=== PATIENT | female | born 1960 | race Caucasian/White ===

== ENCOUNTER 2016-10-26 06:12 | Emergency (ER) | payer MEDICAID, OTHER ==
[2016-10-26] MEDS ORDERED: ASPIRIN 81 MG TABLET, CHEWABLE PO ONE (07:41)
[2016-10-26] MEDS ORDERED: NITROGLYCERIN 2% OINTMENT 1 GM PACKET TP ONE (08:15)
[2016-10-26 08:17] LABS: HEMATOCRIT 49.8 % (36.0-47.0); HEMOGLOBIN 16.7 g/dL (12.0-15.5); HGB HCT DIFFERENCE 0.3; MEAN CORPUSCULAR HEMOGLOBIN 31.8 pg (27.0-33.4); MEAN CORPUSCULAR HGB CONC 33.4 g/dL (32.0-36.0); MEAN CORPUSCULAR VOLUME 95 fl (80-97); RED BLOOD COUNT 5.24 10^6/uL (3.72-5.28); RED CELL DISTRIBUTION WIDTH 14.4 % (11.5-14.0)
[2016-10-26 08:30] LABS: ALANINE AMINOTRANSFERASE 39 U/L (9-52); ALBUMIN 4.9 g/dL (3.5-5.0); ALKALINE PHOSPHATASE 51 U/L (38-126); ANION GAP 10 (5-19); ASPARTATE AMINO TRANSFERASE 40 U/L (14-36); BILIRUBIN,TOTAL 0.9 mg/dL (0.2-1.3); BLOOD UREA NITROGEN 15 mg/dL (7-20); CALCIUM 10.4 mg/dL (8.4-10.2); CARBON DIOXIDE 28 mmol/L (22-30); CHLORIDE 107 mmol/L (98-107); CREATINE KINASE 156 U/L (30-135); GLUCOSE 119 mg/dL (75-110); POTASSIUM 4.5 mmol/L (3.6-5.0); SODIUM 145.4 mmol/L (137-145); TOTAL PROTEIN 7.7 g/dL (6.3-8.2)
[2016-10-26 08:35] LABS: BAND NEUTROPHILS % (MANUAL) 1 % (3-5); BASOPHILS % (MANUAL) 0 % (0-2); EOSINOPHILS % (MANUAL) 0 % (0-6); LYMPHOCYTES % (MANUAL) 13 % (13-45); TOTAL CELLS COUNTED 100
[2016-10-26 08:36] LABS: RBC MORPHOLOGY COMMENT NORMO-CYTIC/CHROMIC
[2016-10-26 08:42] LABS: CREATINE KINASE MB 6.01 ng/mL (<4.55)
[2016-10-26 08:48] LABS: TROPONIN I 1.27 ng/mL
[2016-10-26 09:03] LABS: PROTHROMBIN TIME 12.8 SEC (11.4-15.4)
[2016-10-26 09:04] LABS: PARTIAL THROMBOPLASTIN TIME 32.8 SEC (23.5-35.8)
[2016-10-26] MEDS ORDERED: NORMAL SALINE 1000 ML 1,000 ML IV ONE (09:51)
[2016-10-26 09:54] LABS: APPEARANCE,URINE SLIGHTLY-CLOUDY; BILIRUBIN,URINE NEGATIVE (NEGATIVE); GLUCOSE, URINE NEGATIVE (NEGATIVE); KETONES,URINE 20 mg/dL (NEGATIVE); LEUKOCYTE ESTERASE,URINE TRACE (NEGATIVE); NITRITE,URINE NEGATIVE (NEGATIVE); PROTEIN,URINE 100 mg/dL (NEGATIVE); URINE SPECIFIC GRAVITY 1.019; UROBILINOGEN,URINE NEGATIVE mg/dL (<2.0)
[2016-10-26 09:55] LABS: URINE BARBITURATES SCREEN NEGATIVE; URINE METHADONE SCREEN NEGATIVE; URINE OPIATES LOW NEGATIVE; URINE PHENCYCLIDINE SCREEN NEGATIVE
[2016-10-26] MEDS ORDERED: ENOXAPARIN SODIUM INJ 60 MG/0.6 ML DISP.SYRIN SUBCUT SCH (10:00)
--- NOTE | 2016-10-26 10:16 | ER Document Report ---
ED Cardiac <AZIZA MYERS - Last Filed: 10/26/16 10:56> - General Mode of Arrival: Ambulatory Information source: Patient TRAVEL OUTSIDE OF THE U.S. IN LAST 30 DAYS: No - HPI Patient complains to provider of: Chest tightness, Shortness of breath Was the onset of pain: Gradual Is the pain a: New problem Chest pain location: Substernal Quality of pain: Pressure, Tightness Chest pain radiation location: None Severity now: Mild Severity at worst: Moderate Pain level currently: 2 Chest pain precipitating factors: At Rest Cardiac risk factors: Hypertension, Smoker Positive cardiac history: No Associated symptoms: Diaphoresis, Nausea/vomiting, Shortness of breath Similar symptoms previously: No Recently seen / treated by doctor: No <LUNA GREEN - Last Filed: 10/26/16 19:03> - General Chief Complaint: Breathing Difficulty Stated Complaint: VOMITING,BREATHING DIFFICULTY Notes: 55 y/o F presents to ED c/o intermittently persistent cough and sob since yesterday. Reports had associated episode of "feeling sweaty" while at rest and n/v yesterday. Also c/o chest pressure, states does not feel pain but feels like elephant sitting on chest. States feels like last time she had pneumonia. Denies fever or hemoptysis. (LUNA GREEN) - Related Data Allergies/Adverse Reactions: codeine [Codeine] Allergy (Verified 10/26/16 08:46) rash Home Medications: Current Home Medications No Home Medications 10/26/16 [History] Past Medical History - General Information source: Patient - Social History Smoking Status: Current Every Day Smoker Frequency of alcohol use: None Drug Abuse: None Lives with: Family Family History: Reviewed & Not Pertinent Patient has suicidal ideation: No Patient has homicidal ideation: No - Past Medical History Cardiac Medical History: Reports: Hx Hypertension - no current meds Denies: Hx Coronary Artery Disease, Hx Heart Attack Pulmonary Medical History: Reports: Hx Bronchitis, Hx COPD Denies: Hx Asthma, Hx Pneumonia, Hx Tuberculosis Neurological Medical History: Denies: Hx Cerebrovascular Accident, Hx Seizures Renal/ Medical History: Denies: Hx Peritoneal Dialysis GI Medical History: Reports: Hx Irritable Bowel. Denies: Hx Hepatitis, Hx Hiatal Hernia, Hx Ulcer Musculoskeltal Medical History: Denies Hx Arthritis Infectious Medical History: Denies: Hx Hepatitis Past Surgical History: Reports: Hx Tubal Ligation. Denies: Hx Hysterectomy, Hx Mastectomy, Hx Open Heart Surgery, Hx Pacemaker - Immunizations Hx Diphtheria, Pertussis, Tetanus Vaccination: Yes - 2006 <LUNA GREEN - Last Filed: 10/26/16 19:03> Review of Systems - Review of Systems Constitutional: No symptoms reported EENT: No symptoms reported Cardiovascular: See HPI Respiratory: See HPI Gastrointestinal: No symptoms reported Genitourinary: No symptoms reported Female Genitourinary: No symptoms reported Musculoskeletal: No symptoms reported Skin: No symptoms reported Hematologic/Lymphatic: No symptoms reported Neurological/Psychological: No symptoms reported -: Yes All other systems reviewed and negative <LUNA GREEN - Last Filed: 10/26/16 19:03> Physical Exam - Vital signs Interpretation: Normal - General General appearance: Alert In distress: None - HEENT Head: Normocephalic, Atraumatic Eyes: Normal Pupils: PERRL - Respiratory Respiratory status: No respiratory distress Chest status: Nontender Breath sounds: Normal - CTAB. No: Rhonchi, Wheezing Chest palpation: Normal - Cardiovascular Rhythm: Regular Heart sounds: Normal auscultation Murmur: No Pulses: Normal: Radial, Posterior tibial, Dorsalis pedis Normal capillary refill: Yes - Abdominal Inspection: Normal Distension: No distension Bowel sounds: Normal Tenderness: Nontender Organomegaly: No organomegaly - Back Back: Normal, Nontender - Extremities General upper extremity: Normal inspection, Nontender, Normal color, Normal ROM , Normal strength, Normal temperature. No: Tender, Edema General lower extremity: Normal inspection, Nontender, Normal color, Normal ROM , Normal strength, Normal temperature, Normal weight bearing. No: Tender, Edema , Sharee's sign - Neurological Neuro grossly intact: Yes Cognition: Normal Orientation: AAOx4 Conway Coma Scale Eye Opening: Spontaneous Miguel Coma Scale Verbal: Oriented [place] Coma Scale Motor: Obeys Commands Conway Coma Scale Total: 15 Speech: Normal Motor strength normal: LUE, RUE, LLE, RLE Sensory: Normal - Psychological Associated symptoms: Normal affect, Normal mood - Skin Skin Temperature: Warm Skin Moisture: Dry Skin Color: Normal Skin Turgor: Elastic <PETERLUNA - Last Filed: 10/26/16 19:03> - Vital signs Vitals: Temp Pulse Resp BP Pulse Ox 97.7 F 103 H 19 140/85 H 97 10/26/16 06:18 10/26/16 06:18 10/26/16 06:18 10/26/16 06:18 10/26/16 06:18 (AZIZA MYERS) (LUNA GREEN) Course - Laboratory Result Diagrams: 10/26/16 07:51 10/26/16 07:51 <AZIZA MYERS - Last Filed: 10/26/16 10:56> - Laboratory Result Diagrams: 10/26/16 07:51 10/26/16 07:51 - Diagnostic Test Radiology reviewed: Image reviewed, Reports reviewed - EKG Interpretation by Nm EKG shows normal: Sinus rhythm Rate: Normal When compared to previous EKG there are: Changes noted - T wave inversion <LUNA GREEN - Last Filed: 10/26/16 19:03> - Re-evaluation Re-evalutation: 10/26/16 10:56 The patient was seen and independently evaluated by myself. Patient currently chest pain-free heart and lungs are normal. Patient is in no obvious distress. Discussed treatment plan with patient is that she is awaiting transfer to [facility] or [facility] for her instantly. Patient was encouraged to alert us a time she developed more chest pain. Patient will be transferred upon first available facility (AZIZA MYERS) 10/26/16 09:30 Patient hemodynamically stable, in no distress, and states chest pain resolved after topical nitroglycerin. Patient has EKG changes and elevated cardiac enzymes. Chest xray unremarkable. Patient presentation and findings were discussed with shellfish meat separator operator at [facility] (Dr. Bailey) and [facility] (Dr. Reece) who accept patient for transfer pending available bed. ED physician Dr. Myers involved in evaluation and treatment of patient per [facility] guidelines. 10/26/16 19:00 Patient remains hemodynamically stable, in no distress and without chest pain at this time. ETA of transport to [facility] 20 minutes. Patient will be reassessed by ED physician Dr. Blackman who is aware of patient prior to transfer per [facility] and transfer guidelines. (LUNA GREEN) - Vital Signs Vital signs: Temp Pulse Resp BP Pulse Ox 97.7 F 103 H 15 98/58 L 96 10/26/16 06:18 10/26/16 06:18 10/26/16 17:30 10/26/16 17:28 10/26/16 17:30 (AZIZA MYERS) (PETERLUNA) - Laboratory Laboratory results interpreted by me: 10/26/16 10/26/16 10/26/16 07:51 07:51 07:51 WBC 20.0 H Hgb 16.7 H Hct 49.8 H RDW 14.4 H Band Neutrophils % 1 L Abs Neuts (Manual) 15.8 H Abs Monocytes (Manual) 1.6 H Sodium 145.4 H Glucose 119 H Calcium 10.4 H AST 40 H Creatine Kinase 156 H CK-MB (CK-2) 6.01 H Urine Protein Urine Ketones Urine Blood Ur Leukocyte Esterase 10/26/16 09:21 WBC Hgb Hct RDW Band Neutrophils % Abs Neuts (Manual) Abs Monocytes (Manual) Sodium Glucose Calcium AST Creatine Kinase CK-MB (CK-2) Urine Protein 100 H Urine Ketones 20 H Urine Blood MODERATE H Ur Leukocyte Esterase TRACE H (AZIZA MYERS) (PETERLUNA) Critical Care Note - Critical Care Note Total time excluding time spent on procedures (mins): 30 <LUNA GREEN - Last Filed: 10/26/16 19:03> Discharge <AZIZA MYERS - Last Filed: 10/26/16 10:56> - Discharge Admitting Provider: Dr. Reece <LUNA GREEN - Last Filed: 10/26/16 19:03> - Discharge Clinical Impression: NSTEMI (non-ST elevated myocardial infarction) Condition: Stable Disposition: [facility]
--- NOTE | 2016-10-26 10:35 | EKG REPORT ---
SEVERITY:- ABNORMAL ECG - SINUS RHYTHM LEFT ANTERIOR FASCICULAR BLOCK ABNRM R PROG, CONSIDER ASMI OR LEAD PLACEMENT ABNORMAL T, CONSIDER ISCHEMIA, DIFFUSE LEADS BORDERLINE PROLONGED QT INTERVAL : Confirmed by: Justo Thomas 26-Oct-2016 10:33:42
[2016-10-26] MEDS ORDERED: ACETAMINOPHEN 325 MG TABLET PO ONE (14:42)
[2016-10-26 18:20] LABS: CREATINE KINASE MB 4.25 ng/mL (<4.55); TROPONIN I 0.915 ng/mL
[2016-10-26 19:05] VITALS: BP 108/75
--- NOTE | 2016-10-26 19:12 | ER Document Report ---
Doctor's Note Notes: 10/26/16 19:10 Reevaluation prior to transport: Patient is alert, oriented, and coherent, appears comfortable. Denies any pain. Vital signs are satisfactory. Auscultation of heart and lungs is normal. Patient remains stable for transport.
--- NOTE | 2016-10-26 21:51 | EKG REPORT ---
SEVERITY:- ABNORMAL ECG - SINUS RHYTHM LEFT ANTERIOR FASCICULAR BLOCK ABNRM R PROG, CONSIDER ASMI ABNORMAL T, PROBABLE ISCHEMIA, WIDESPREAD BORDERLINE PROLONGED QT INTERVAL : Confirmed by: Justo Thomas 26-Oct-2016 21:51:31
== END 2016-10-26 19:38 | disposition short-term general hospital (02) ==
LOC: ER 06:12
DX: I21.4 Non-ST elevation (NSTEMI) myocardial infarction (principal); I10 Essential (primary) hypertension; R05 Cough; R06.02 Shortness of breath; R61 Generalized hyperhidrosis; R11.2 Nausea with vomiting, unspecified; R07.89 Other chest pain; F17.200 Nicotine dependence, unspecified, uncomplicated; J44.9 Chronic obstructive pulmonary disease, unspecified; Z88.5 Allergy status to narcotic agent; Z87.01 Personal history of pneumonia (recurrent)
CPT/HCPCS: 93005; 99291; 96372; 96360; 36415; 82553; 82550; 85025; 85610; 85730; 80053; 81001; 84484; 80307; 85379; 87804; 71020; 93010; J7030; J1650

== ENCOUNTER 2017-01-18 09:30 | Emergency (ER) | payer SELFPAY ==
[2017-01-18 09:34] VITALS: BP 207/86
[2017-01-18] MEDS ORDERED: HYDROCODONE/ACETAMINOPHEN 5-325 MG TABLET PO ONE (09:55)
[2017-01-18] MEDS ORDERED: PENICILLIN V POTASSIUM 500 MG TABLET PO ONE (09:55)
--- NOTE | 2017-01-18 09:58 | ER Document Report ---
HPI - HPI Patient complains to provider of: dental pain Onset: Yesterday Onset/Duration: Persistent Quality of pain: Achy Pain Level: 5 Context: Patient complains of dental pain that started yesterday to a broken tooth to the left upper jaw. No fever or facial swelling. Patient say she does have a history of hypertension, but forgot to take her medications this morning. Patient states she does have the medications at home. Associated Symptoms: Other - Dental pain. denies: Fever Exacerbated by: Denies Relieved by: Denies Similar symptoms previously: Yes Recently seen / treated by doctor: No - ROS ROS below otherwise negative: Yes Systems Reviewed and Negative: Yes All other systems reviewed and negative - CONSTITUTIONAL Constitutional: DENIES: Fever - EENT EENT: DENIES: Sore Throat Notes: Dental pain - NEURO Neurology: DENIES: Headache - CARDIOVASCULAR Cardiovascular: DENIES: Chest pain - RESPIRATORY Respiratory: DENIES: Trouble Breathing, Coughing - GASTROINTESTINAL Gastrointestinal: DENIES: Nausea, Patient vomiting - REPRODUCTIVE Reproductive: DENIES: : - MUSCULOSKELETAL Musculoskeletal: DENIES: Back Pain, Neck Pain - DERM Skin Color: Normal Skin Problems: None Past Medical History - General Information source: Patient - Social History Smoking Status: Current Every Day Smoker Frequency of alcohol use: None Drug Abuse: None Lives with: Family Family History: Reviewed & Not Pertinent - Past Medical History Cardiac Medical History: Reports: Hx Heart Attack, Hx Hypertension - no current meds Denies: Hx Coronary Artery Disease Pulmonary Medical History: Reports: Hx Bronchitis, Hx COPD Denies: Hx Asthma, Hx Pneumonia, Hx Tuberculosis Neurological Medical History: Denies: Hx Cerebrovascular Accident, Hx Seizures Renal/ Medical History: Denies: Hx Peritoneal Dialysis GI Medical History: Reports: Hx Irritable Bowel. Denies: Hx Hepatitis, Hx Hiatal Hernia, Hx Ulcer Musculoskeltal Medical History: Denies Hx Arthritis Infectious Medical History: Denies: Hx Hepatitis Past Surgical History: Reports: Hx Tubal Ligation. Denies: Hx Hysterectomy, Hx Mastectomy, Hx Open Heart Surgery, Hx Pacemaker - Immunizations Hx Diphtheria, Pertussis, Tetanus Vaccination: Yes - 2006 Vertical Provider Document - CONSTITUTIONAL Agree With Documented VS: Yes Exam Limitations: No Limitations General Appearance: WD/WN, No Apparent Distress - INFECTION CONTROL TRAVEL OUTSIDE OF THE [place].S. IN LAST 30 DAYS: No - HEENT HEENT: negative: Dental Injury, Pharyngeal Exudate, Pharyngeal Tenderness, Pharyngeal Erythema, Tympanic Membrane Red, Tympanic Membrane Bulging Mouth Diagram: 1 - Dental fracture, tenderness, no gingival abscess, no trismus - NECK Neck: Normal Inspection, Supple. negative: Lymphadenopathy-Left, Lymphadenopathy-Right - RESPIRATORY Respiratory: Breath Sounds Normal, No Respiratory Distress, Chest Non-Tender O2 Sat by Pulse Oximetry: 99 - CARDIOVASCULAR Cardiovascular: Regular Rate, Regular Rhythm, No Murmur - MUSCULOSKELETAL/EXTREMETIES Musculoskeletal/Extremeties: MAEW - NEURO Level of Consciousness: Awake, Alert, Appropriate Motor/Sensory: No Motor Deficit - DERM Integumentary: Warm, Dry, No Rash Course - Re-evaluation Re-evalutation: 01/18/17 09:57 The patient has been informed that they may have pre-hypertension or hypertension based on a blood pressure reading in the emergency department. I recommend that patient call the primary care provider listed on their discharge instructions or a physician of their choice by this week to arrange follow-up for further evaluation of possible pre-hypertension her hypertension. - Vital Signs Vital signs: Temp Pulse Resp BP Pulse Ox 98.5 F 65 16 207/86 H 99 01/18/17 09:31 01/18/17 09:31 01/18/17 09:31 01/18/17 09:31 01/18/17 09:31 Discharge - Discharge Clinical Impression: Toothache, Hx of essential hypertension Condition: Stable Disposition: HOME, SELF-CARE Instructions: Penicillin V K ([facility]), Oral Narcotic Medication ([facility]), Toothache ( [facility]) Additional Instructions: Return immediately for any new or worsening symptoms Followup with your primary care provider, call tomorrow to make a followup appointment Your blood pressure was elevated today, be sure to take your blood pressure medication whenever he returned home. Have your primary doctor recheck your blood pressure next week Prescriptions: Hydrocodone/Acetaminophen [[place] 5-325 Tablet] 1 each PO Q4 PRN #15 tablet PRN Reason: Penicillin V Potassium [Penicillin Vk 500 mg Tablet] 500 mg PO BID #20 tablet Forms: Elevated Blood Pressure Referrals: [facility] [Provider Group] - Follow up as needed [facility] [Provider Group] - Follow up tomorrow
== END 2017-01-18 10:10 | disposition home or self-care (01) ==
LOC: ER 09:30
DX: K08.89 Other specified disorders of teeth and supporting structures (principal); I10 Essential (primary) hypertension; T46.4X6A Underdosing of angiotensin-converting-enzyme inhibitors, initial encounter; Z91.138 Patient's unintentional underdosing of medication regimen for other reason; Z91.14 Patient's other noncompliance with medication regimen; Z79.899 Other long term (current) drug therapy; F17.200 Nicotine dependence, unspecified, uncomplicated; I25.2 Old myocardial infarction; J44.9 Chronic obstructive pulmonary disease, unspecified
CPT/HCPCS: 99282

== ENCOUNTER 2017-01-21 09:23 | Emergency (ER) | payer SELFPAY ==
[2017-01-21] MEDS ORDERED: BUPIVACAINE HCL 0.5 % INJ/PF 30 ML SDV ONE (11:58)
== END 2017-01-21 12:30 | disposition home or self-care (01) ==
LOC: ER 09:23
PROC: 3E0T3BZ Introduction of Anesthetic Agent into Peripheral Nerves and Plexi, Percutaneous Approach (ICD-10-PCS; principal; 2017-01-21)
DX: K08.9 Disorder of teeth and supporting structures, unspecified (principal); R68.84 Jaw pain; F17.200 Nicotine dependence, unspecified, uncomplicated; I25.2 Old myocardial infarction
CPT/HCPCS: 99282

== ENCOUNTER 2017-04-09 08:12 | Emergency (ER) | payer SELFPAY ==
[2017-04-09 08:18] VITALS: BP 179/87
--- NOTE | 2017-04-09 08:44 | ER Document Report ---
HPI - HPI Patient complains to provider of: Toothache Onset: This morning Onset/Duration: Gradual Pain Level: 3 Context: 56-year-old female with lower right side toothache developed swelling this morning. No fever. Associated Symptoms: None Exacerbated by: Denies Relieved by: Denies - He Similar symptoms previously: Yes Recently seen / treated by doctor: No - ROS ROS below otherwise negative: Yes Systems Reviewed and Negative: Yes All other systems reviewed and negative - REPRODUCTIVE LMP: 2000 Reproductive: DENIES: : - DERM Skin Color: Normal Past Medical History - General Information source: Patient - Social History Smoking Status: Current Every Day Smoker Frequency of alcohol use: None Drug Abuse: None Lives with: Family Family History: Reviewed & Not Pertinent - Past Medical History Cardiac Medical History: Reports: Hx Heart Attack, Hx Hypertension - no current meds Pulmonary Medical History: Reports: Hx Bronchitis, Hx COPD Renal/ Medical History: Denies: Hx Peritoneal Dialysis GI Medical History: Reports: Hx Irritable Bowel Past Surgical History: Reports: Hx Tubal Ligation - Immunizations Hx Diphtheria, Pertussis, Tetanus Vaccination: Yes - 2006 Vertical Provider Document - CONSTITUTIONAL Agree With Documented VS: Yes Exam Limitations: No Limitations General Appearance: No Apparent Distress - INFECTION CONTROL TRAVEL OUTSIDE OF THE [place]. IN LAST 30 DAYS: No - HEENT HEENT: Normocephalic Notes: abscess that is draining lower right adjacent to bicuspid with decay - NECK Neck: Supple. negative: Lymphadenopathy-Left, Lymphadenopathy-Right - RESPIRATORY O2 Sat by Pulse Oximetry: 98 - MUSCULOSKELETAL/EXTREMETIES Musculoskeletal/Extremeties: MAEW, FROM - NEURO Level of Consciousness: Awake, Alert, Appropriate Motor/Sensory: No Motor Deficit, No Sensory Deficit - DERM Integumentary: Warm, Dry Course - Vital Signs Vital signs: Temp Pulse Resp BP Pulse Ox 98.9 F 96 16 179/87 H 98 04/09/17 08:16 04/09/17 08:16 04/09/17 08:16 04/09/17 08:16 04/09/17 08:16 Discharge - Discharge Clinical Impression: Elevated blood pressure reading, Toothache, Dental abscess Condition: Good Disposition: HOME, SELF-CARE Instructions: [facility], Penicillin V K ([facility]), Toothache ([facility]), Anti-Inflammatory Medication ([facility]), Acetaminophen, Dental Infection or Abscess ( [facility]), Dentist, Stop Smoking ([facility]) Additional Instructions: warm compress take the antibiotics to er if worse go to [facility] to get your blood pressure medication refilled see the dentist as soon as possible Prescriptions: Ibuprofen [Motrin 800 mg Tablet] 800 mg PO Q8HP PRN #30 tablet PRN Reason: Penicillin V Potassium [Penicillin Vk 500 mg Tablet] 500 mg PO QID #40 tablet Referrals: [facility] [Primary Care Provider] - Follow up as needed
[2017-04-09] MEDS ORDERED: IBUPROFEN 600 MG TABLET PO ONE (08:51)
[2017-04-09] MEDS ORDERED: ACETAMINOPHEN 325 MG TABLET PO ONE (08:51)
[2017-04-09] MEDS ORDERED: ONDANSETRON 4 MG TAB.RAPDIS PO ONE (08:51)
[2017-04-09] MEDS ORDERED: PENICILLIN V POTASSIUM 500 MG TABLET PO ONE (08:51)
== END 2017-04-09 09:04 | disposition home or self-care (01) ==
LOC: ER 08:12
DX: K04.7 Periapical abscess without sinus (principal); K08.89 Other specified disorders of teeth and supporting structures; R03.0 Elevated blood-pressure reading, without diagnosis of hypertension; R22.0 Localized swelling, mass and lump, head; F17.200 Nicotine dependence, unspecified, uncomplicated
CPT/HCPCS: 99282; S0119

== ENCOUNTER 2017-04-13 07:58 | Emergency (ER) | payer SELFPAY ==
[2017-04-13] MEDS ORDERED: OXYCODONE-ACETAMINOPHEN 5-325 MG TABLET PO ONE (08:51)
--- NOTE | 2017-04-13 08:54 | ER Document Report ---
ED Oral Problem - General Chief Complaint: Toothache Stated Complaint: FACIAL SWELLING Time Seen by Provider: 04/13/17 08:24 Notes: Patient is a 56-year-old female presents emergency department complaining of right lower jaw pain. Patient states that she was evaluated here a week ago started on penicillin and Motrin for pain which helped initially but over the past couple of days she has been having jaw swelling and pain. She denies any foul odor or drainage. Denies any difficulty swallowing, difficulty breathing, chest pain, shortness of breath, fever or chills. TRAVEL OUTSIDE OF THE [place] IN LAST 30 DAYS: No - Related Data Allergies/Adverse Reactions: codeine [Codeine] Allergy (Verified 04/13/17 08:10) rash Past Medical History - Social History Smoking Status: Current Every Day Smoker Chew tobacco use (# tins/day): No Frequency of alcohol use: None Drug Abuse: None Family History: Reviewed & Not Pertinent - Past Medical History Cardiac Medical History: Reports: Hx Heart Attack, Hx Hypertension - no current meds Denies: Hx Coronary Artery Disease Pulmonary Medical History: Reports: Hx Bronchitis, Hx COPD Denies: Hx Asthma, Hx Pneumonia, Hx Tuberculosis Neurological Medical History: Denies: Hx Cerebrovascular Accident, Hx Seizures Renal/ Medical History: Denies: Hx Peritoneal Dialysis GI Medical History: Reports: Hx Irritable Bowel. Denies: Hx Hepatitis, Hx Hiatal Hernia, Hx Ulcer Musculoskeltal Medical History: Denies Hx Arthritis Infectious Medical History: Denies: Hx Hepatitis Past Surgical History: Reports: Hx Tubal Ligation. Denies: Hx Hysterectomy, Hx Mastectomy, Hx Open Heart Surgery, Hx Pacemaker - Immunizations Hx Diphtheria, Pertussis, Tetanus Vaccination: Yes - 2006 Review of Systems - Review of Systems Constitutional: No symptoms reported EENT: See HPI -: Yes All other systems reviewed and negative Physical Exam - General General appearance: Appears well, Alert In distress: None - HEENT Mouth/Lips: Caries, Dental fracture, Other - Dental abscess in the right lower jaw around tooth 30 Pharynx: Normal. No: Blood in hypopharynx, Peritonsillar abscess, Retropharyngeal abscess, Potential airway comprom. Neck: Normal. No: Lymphadenopathy - Respiratory Respiratory status: No respiratory distress Chest status: Nontender Breath sounds: Normal Chest palpation: Normal - Cardiovascular Rhythm: Regular Heart sounds: Normal auscultation, S1 appreciated, S2 appreciated Murmur: No - Neurological Neuro grossly intact: Yes Cognition: Normal Orientation: AAOx4 [place] Coma Scale Eye Opening: Spontaneous [place] Coma Scale Verbal: Oriented Miguel Coma Scale Motor: Obeys Commands Miguel Coma Scale Total: 15 Speech: Normal Cranial nerves: Normal Cerebellar coordination: Normal - Skin Skin Temperature: Warm Skin Moisture: Dry Skin Color: Normal Skin Turgor: Elastic Course - Re-evaluation Re-evalutation: 04/13/17 09:21 Patient is a 56-year-old female who is hemodynamically stable, no acute distress and afebrile. Presentation is most consistent with likely an infected tooth. Airway is patent. Vitals within normal limits. Patient is able swallow without any difficulty. There is no significant facial swelling. I&D completed at the bedside for dental abscess. Patient will continue antibiotics and a limited number of pain medications. I've instructed to follow -up with dentistry as earliest ability for definitive management. Return precautions and follow-up recommendations have been discussed at length. Procedures - Incision and Drainage abscess Type: Simple - dental abscess Anesthetic type: 1% Lidocaine, 0.5% Bupivacaine mL's of anesthetic: 5 Blade size: 11 Incision Method: Incision made with needle Amount/type of drainage: 5cc purulent drainage Mouth/Teeth picture: 1 - abscess Discharge - Discharge Clinical Impression: Dental abscess Condition: Good Disposition: HOME, SELF-CARE Instructions: Abscess ([facility]), Post Incision and Drainage, Toothache ([facility]) Additional Instructions: [facility] [address] [place], [place] Thursday mornings, by appointment [facility] [address] [place] [address] [facility] [place] [address] [facility] [address] [facility] [address] [email or web address] [address] [place] [address] Thursday- 8:00am to 5:00 pm Will see patients from other [facility]. Charges based on income and family size and accepts Medicare, Medicaid, and Insurances Will pull molars [facility] [employer] [facility] [id number] Hours of Operation 8:00 am - 4:30 pm weekdays The following dental offices accept Medicaid: [facility] Dr. Damico Dr. Espinoza Dr. Rojas Dr. Hung Louis Chan, Nikolai, and Rebeka oral surgery Dr. Villanueva ([place]) Dr. Avendano ([place]) [facility] Drs. Gamboa and Ashok ([place]) Dr. Carranza ([place]) [facility] Dr. Tejeda ([place]) Drs. Rey and ([place]) Medicaid Care Line Forms: Return to Work
[2017-04-13] MEDS ORDERED: BUPIVACAINE HCL 0.5 % INJ/PF 30 ML SDV INJ ONE (08:57)
[2017-04-13] MEDS ORDERED: HYDROCODONE/ACETAMINOPHEN 5-325 MG 6 TAB/DSPK PO PRN (09:23)
[2017-04-13 09:35] VITALS: BP 148/76
== END 2017-04-13 09:35 | disposition home or self-care (01) ==
LOC: ER 07:58
PROC: 0C96XZZ Drainage of Lower Gingiva, External Approach (ICD-10-PCS; principal; 2017-04-13)
DX: K04.7 Periapical abscess without sinus (principal); K08.89 Other specified disorders of teeth and supporting structures; R22.0 Localized swelling, mass and lump, head; R68.84 Jaw pain; F17.200 Nicotine dependence, unspecified, uncomplicated
CPT/HCPCS: 99283

== ENCOUNTER 2017-06-09 09:09 | Inpatient (IN) | payer SELFPAY ==
[2017-06-09] MEDS ORDERED: ASPIRIN 81 MG TABLET, CHEWABLE PO ONE (10:10)
[2017-06-09 10:18] LABS: ABSOLUTE BASOPHILS # (AUTO) 0.1 10^3/uL (0.0-0.2); ABSOLUTE EOSINOPHILS # (AUTO) 0.1 10^3/uL (0.0-0.6); ABSOLUTE LYMPHOCYTES (AUTO) 1.7 10^3/uL (0.5-4.7); ABSOLUTE MONOCYTES (AUTO) 0.6 10^3/uL (0.1-1.4); ABSOLUTE NEUT (AUTO) 7.3 10^3/uL (1.7-8.2); BASOPHILS % (AUTO) 0.9 % (0-2); EOSINOPHILS % (AUTO) 0.8 % (0-6); HEMATOCRIT 48.5 % (36.0-47.0); HEMOGLOBIN 16.9 g/dL (12.0-15.5); HGB HCT DIFFERENCE 2.2; LYMPHOCYTES % (AUTO) 17.3 % (13-45); MEAN CORPUSCULAR HEMOGLOBIN 32.9 pg (27.0-33.4); MEAN CORPUSCULAR HGB CONC 34.8 g/dL (32.0-36.0); MEAN CORPUSCULAR VOLUME 95 fl (80-97); MONOCYTES % (AUTO) 5.8 % (3-13); RED BLOOD COUNT 5.14 10^6/uL (3.72-5.28); RED CELL DISTRIBUTION WIDTH 13.5 % (11.5-14.0); SEGMENTED NEUTROPHILS % (AUTO) 75.2 % (42-78); WHITE BLOOD COUNT 9.7 10^3/uL (4.0-10.5)
[2017-06-09 10:25] LABS: PROTHROMBIN TIME 12.8 SEC (11.4-15.4)
[2017-06-09 10:45] LABS: ALANINE AMINOTRANSFERASE 30 U/L (9-52); ALBUMIN 4.5 g/dL (3.5-5.0); ALKALINE PHOSPHATASE 55 U/L (38-126); ANION GAP 10 (5-19); ASPARTATE AMINO TRANSFERASE 32 U/L (14-36); BILIRUBIN,DIRECT 0.4 mg/dL (0.0-0.4); BILIRUBIN,TOTAL 0.5 mg/dL (0.2-1.3); BLOOD UREA NITROGEN 11 mg/dL (7-20); CALCIUM 10.1 mg/dL (8.4-10.2); CARBON DIOXIDE 27 mmol/L (22-30); CHLORIDE 107 mmol/L (98-107); CREATINE KINASE 100 U/L (30-135); CREATININE RESULT 0.64 mg/dL (0.52-1.25); GLUCOSE 143 mg/dL (75-110); SODIUM 144.2 mmol/L (137-145); TOTAL PROTEIN 7.9 g/dL (6.3-8.2)
--- NOTE | 2017-06-09 10:51 | RADIOLOGY REPORT (SQ) ---
EXAM DESCRIPTION: CHEST SINGLE VIEW COMPLETED DATE/TIME: 06/09/2017 10:42 am REASON FOR STUDY: sob COMPARISON: Two-view chest 10/26/2016 EXAM PARAMETERS: NUMBER OF VIEWS: One view. TECHNIQUE: Single frontal radiographic view of the chest acquired. RADIATION DOSE: NA LIMITATIONS: None. FINDINGS: LUNGS AND PLEURA: No opacities, masses or pneumothorax. No pleural effusion. MEDIASTINUM AND HILAR STRUCTURES: No masses. Contour normal. HEART AND VASCULAR STRUCTURES: Heart normal in size. Normal vasculature. BONES: No acute findings. HARDWARE: None in the chest. OTHER: No other significant finding. IMPRESSION: NO ACUTE RADIOGRAPHIC FINDING IN THE CHEST. TECHNICAL DOCUMENTATION: JOB ID: [id number]
[2017-06-09 11:03] LABS: CREATINE KINASE MB 1.03 ng/mL (<4.55)
[2017-06-09 11:04] LABS: TROPONIN I < 0.012 ng/mL
[2017-06-09] MEDS ORDERED: NORMAL SALINE 1000 ML 1,000 ML IV ONE (11:30)
[2017-06-09] MEDS ORDERED: PENICILLIN V POTASSIUM 500 MG TABLET PO ONE (13:40)
--- NOTE | 2017-06-09 14:06 | ER Document Report ---
ED General - General Chief Complaint: Jaw Pain Stated Complaint: JAW PAIN CHEST PAIN Time Seen by Provider: 06/09/17 10:10 TRAVEL OUTSIDE OF THE [place] IN LAST 30 DAYS: No - HPI Patient complains to provider of: Chest pain jaw pain Notes: Patient coming in for evaluation of left jaw pain left-sided chest pain. Patient states left jaw pain started day prior to arrival patient states chest pain started earlier this morning left-sided chest achy did not feel any radiation up into her jaw however because of having the 2000 pain concerned therefore came into the ER for further evaluation patient states had a heart attack in October underwent a cardiac catheterization with no syncopal disease found. Patient otherwise states that she is currently ran out of her medications from her previous admission patient states no longer on blood pressure medication or antilipid medication. Patient states currently is pain- free except for her left jaw. Denies fevers chills nausea vomiting - Related Data Allergies/Adverse Reactions: codeine [Codeine] Allergy (Verified 06/09/17 10:45) rash Home Medications: Current Home Medications No Home Medications 06/09/17 [History] Past Medical History - Social History Smoking Status: Current Every Day Smoker Chew tobacco use (# tins/day): No Frequency of alcohol use: None Drug Abuse: None Family History: Reviewed & Not Pertinent Patient has suicidal ideation: No Patient has homicidal ideation: No - Past Medical History Cardiac Medical History: Reports: Hx Heart Attack, Hx Hypertension - no current meds Denies: Hx Coronary Artery Disease Pulmonary Medical History: Reports: Hx Bronchitis, Hx COPD Denies: Hx Asthma, Hx Pneumonia, Hx Tuberculosis Neurological Medical History: Denies: Hx Cerebrovascular Accident, Hx Seizures Renal/ Medical History: Denies: Hx Peritoneal Dialysis GI Medical History: Reports: Hx Irritable Bowel. Denies: Hx Hepatitis, Hx Hiatal Hernia, Hx Ulcer Musculoskeltal Medical History: Denies Hx Arthritis Infectious Medical History: Denies: Hx Hepatitis Past Surgical History: Reports: Hx Tubal Ligation. Denies: Hx Hysterectomy, Hx Mastectomy, Hx Open Heart Surgery, Hx Pacemaker - Immunizations Hx Diphtheria, Pertussis, Tetanus Vaccination: Yes - 2006 Review of Systems - Review of Systems Constitutional: No symptoms reported EENT: Other - Jaw pain pain Cardiovascular: Chest pain Respiratory: No symptoms reported Gastrointestinal: No symptoms reported Genitourinary: No symptoms reported Female Genitourinary: No symptoms reported Musculoskeletal: No symptoms reported Skin: No symptoms reported Hematologic/Lymphatic: No symptoms reported Neurological/Psychological: No symptoms reported -: Yes All other systems reviewed and negative Physical Exam - Vital signs Vitals: Temp Pulse Resp BP Pulse Ox 98.6 F 65 20 177/77 H 97 06/09/17 09:29 06/09/17 09:29 06/09/17 09:29 06/09/17 09:29 06/09/17 09:29 Interpretation: Normal - General General appearance: Appears well, Alert - HEENT Head: Normocephalic, Atraumatic Eyes: Normal Pupils: PERRL Sinus: Normal Nasal: Normal Mouth/Lips: Other - Poor dentition no signs of dental abscess or gingival cellulitis. Patient does have reproducible pain upon percussion with a tongue blade tooth #19. Pharynx: Normal Neck: Normal - Respiratory Respiratory status: No respiratory distress Chest status: Nontender Breath sounds: Normal Chest palpation: Normal - Cardiovascular Rhythm: Regular Heart sounds: Normal auscultation Murmur: No - Abdominal Inspection: Normal Distension: No distension Bowel sounds: Normal Tenderness: Nontender Organomegaly: No organomegaly - Back Back: Normal, Nontender - Extremities General upper extremity: Normal inspection, Nontender, Normal color, Normal ROM , Normal temperature General lower extremity: Normal inspection, Nontender, Normal color, Normal ROM , Normal temperature, Normal weight bearing. No: Sharee's sign - Neurological Neuro grossly intact: Yes Cognition: Normal Orientation: AAOx4 [place] Coma Scale Eye Opening: Spontaneous Miguel Coma Scale Verbal: Oriented [place] Coma Scale Motor: Obeys Commands Miguel Coma Scale Total: 15 Speech: Normal Motor strength normal: LUE, RUE, LLE, RLE Sensory: Normal - Psychological Associated symptoms: Normal affect, Normal mood - Skin Skin Temperature: Warm Skin Moisture: Dry Skin Color: Normal Course - Re-evaluation Re-evalutation: 06/09/17 14:50 Initial evaluation showed EKG normal and a negative troponin. Patient's second troponin did increase to 0.068. Patient has remained chest pain-free since her stay here however due to history of coronary artery disease medication noncompliance he will do diligent will be to further admit patient rule out for further lab work. Did discuss with patient agrees with this plan. More likely dental pain causing jaw pain. - Vital Signs Vital signs: Temp Pulse Resp BP Pulse Ox 98.6 F 65 16 130/69 H 99 06/09/17 09:29 06/09/17 09:29 06/09/17 13:05 06/09/17 13:05 06/09/17 13:05 - Laboratory Result Diagrams: 06/09/17 09:45 06/09/17 09:45 Laboratory results interpreted by me: 06/09/17 06/09/17 09:45 09:45 Hgb 16.9 H Hct 48.5 H Glucose 143 H Discharge - Discharge Clinical Impression: Pain, dental, Chest pain of uncertain etiology Condition: Good Disposition: ADMITTED OBSERVATION Admitting Provider: Hospitalist - [facility] Admitted: Telemetry
--- NOTE | 2017-06-09 15:08 | PDOC H&P ---
History of Present Illness Admission Date/PCP: 06/09/17 14:20 Patient complains of: Chest and left jaw pain. History of Present Illness: JESUS GIRALDO is a 56 year old female with a history of Takotsubo cardiomyopathy with an unremarkable cardiac cath several years ago who presents with chest pain. The patient reports that yesterday she had some pain in her left jaw. This morning she woke up and had a 1 minute of a left-sided substernal chest pain. She describes as a pressure 3 out of 10. It did not radiate. She had the jaw pain at a separate time as the chest pain. She denies any nausea vomiting or diaphoresis. She denies any palpitations or tachycardia. She reports that last year she had a cardiac catheterization that was essentially normal by her report. She was diagnosed with Takotsubo cardiomyopathy. The patient denies any cough. Denies any orthopnea PND or lower extremity edema. She denies any prolonged immobility. Denies any recent travel. Denies any fevers or chills. Past Medical History Cardiac Medical History: Reports: Myocardial Infarction - Diagnosed with Takotsubo cardiomyopathy with a normal cardiac cathete, Hypertension - no current meds Denies: Coronary Artery Disease Pulmonary Medical History: Reports: Bronchitis, Chronic Obstructive Pulmonary Disease (COPD) Denies: Asthma, Pneumonia, Tuberculosis EENT Medical History: Reports: Cataracts Neurological Medical History: Denies: Seizures Endocrine Medical History: Reports: None Renal/ Medical History: Reports: None Malignancy Medical History: Reports: None GI Medical History: Reports: None Denies: Hepatitis, Hiatal Hernia Musculoskeltal Medical History: Denies: Arthritis Skin Medical History: Reports: None Psychiatric Medical History: Reports: None Traumatic Medical History: Reports: None Hematology: Reports: Anemia - no meds Denies: Sickle Cell Disease Infectious Medical History: Reports: None Past Surgical History Past Surgical History: Reports: Tubal Ligation Denies: Amputation, Hysterectomy, Mastectomy, Pacemaker Social History Information Source: Patient Lives with: Alone Smoking Status: Current Every Day Smoker Frequency of Alcohol Use: None Hx Recreational Drug Use: Yes Drugs: None Hx Prescription Drug Abuse: No - Advance Directive Resuscitation Status: Full Code Family History Family History: Patient is adopted. Family health history is unknown. Parental Family History Reviewed: Yes Children Family History Reviewed: No Sibling(s) Family History Reviewed.: No Medication/Allergy Home Medications: No Home Medications 06/09/17 Allergies/Adverse Reactions: codeine [Codeine] Allergy (Verified 06/09/17 10:45) rash Review of Systems Constitutional: ABSENT: chills, fever(s), headache(s), weight gain, weight loss Eyes: ABSENT: visual disturbances Ears: ABSENT: hearing changes Nose, Mouth, and Throat: PRESENT: other - Left jaw pain from dental problems. Cardiovascular: PRESENT: as per HPI, chest pain. ABSENT: dyspnea on exertion, edema, orthropnea, palpitations Respiratory: ABSENT: cough, hemoptysis Gastrointestinal: ABSENT: abdominal pain, constipation, diarrhea, hematemesis, hematochezia, nausea, vomiting Genitourinary: ABSENT: dysuria, hematuria Musculoskeletal: ABSENT: joint swelling Integumentary: ABSENT: rash, wounds Neurological: ABSENT: abnormal gait, abnormal speech, confusion, dizziness, focal weakness, syncope Psychiatric: ABSENT: anxiety, depression Endocrine: ABSENT: cold intolerance, heat intolerance, polydipsia, polyuria Hematologic/Lymphatic: ABSENT: easy bleeding, easy bruising Physical Exam Vital Signs: Temp Pulse Resp BP Pulse Ox 98.6 F 65 16 130/69 H 99 06/09/17 09:29 06/09/17 09:29 06/09/17 13:05 06/09/17 13:05 06/09/17 13:05 General appearance: PRESENT: no acute distress, well-developed, well-nourished Eye exam: PRESENT: conjunctiva pink, EOMI, PERRLA. ABSENT: scleral icterus Ear exam: PRESENT: normal external ear exam Mouth exam: PRESENT: moist, tongue midline Teeth exam: PRESENT: poor dentation Neck exam: ABSENT: carotid bruit, JVD, lymphadenopathy, thyromegaly Respiratory exam: PRESENT: clear to auscultation brenda. ABSENT: rales, rhonchi, wheezes Cardiovascular exam: PRESENT: RRR. ABSENT: diastolic murmur, rubs, systolic murmur Pulses: PRESENT: normal dorsalis pedis pul Vascular exam: PRESENT: normal capillary refill GI/Abdominal exam: PRESENT: normal bowel sounds, soft. ABSENT: distended, guarding, mass, organolmegaly, rebound, tenderness Rectal exam: PRESENT: deferred Extremities exam: ABSENT: calf tenderness, clubbing, pedal edema Neurological exam: PRESENT: alert, awake, oriented to person, oriented to place , oriented to time, oriented to situation, CN II-XII grossly intact. ABSENT: motor sensory deficit Psychiatric exam: PRESENT: appropriate affect Skin exam: PRESENT: dry, intact, warm. ABSENT: cyanosis, rash Results Impressions: Chest X-Ray 06/09/17 10:10 IMPRESSION: NO ACUTE RADIOGRAPHIC FINDING IN THE CHEST. Assessment & Plan - Diagnosis (1) Chest pain of uncertain etiology Is this a current diagnosis for this admission?: Yes Plan: The chest pain only lasted for a brief minute and was unrelated to exertion. She recently had a cardiac catheterization that was normal by her report. We will monitor overnight on telemetry. Will check serial cardiac enzymes. If they are normal then we can discharge home. I do not feel a stress test is indicated at this time given her history. (2) Pain, dental Is this a current diagnosis for this admission?: Yes Plan: Patient has been given Pen-Vee K. (3) Takotsubo cardiomyopathy Is this a current diagnosis for this admission?: Yes Plan: Patient reports having a normal cardiac catheterization. - Time Time Spent: 50 to 70 Minutes - Plan Summary Plan Summary: Patient will be admitted as an observation as I anticipate this require less than 2 midnight stay.
[2017-06-09 16:13] LABS: CREATINE KINASE MB 1.06 ng/mL (<4.55); TROPONIN I 0.081 ng/mL
[2017-06-09] MEDS: ACETAMINOPHEN 325 MG TABLET PO PRN (17:39)
[2017-06-09] MEDS ORDERED: INFLUENZA ADLT QUAD (36MOS+) 2017-18 VAC 0.5 ML SYR IM PRN (17:46)
--- NOTE | 2017-06-09 18:16 | EKG REPORT ---
SEVERITY:- BORDERLINE ECG - SINUS RHYTHM LEFT AXIS DEVIATION BORDERLINE T WAVE ABNORMALITIES : Confirmed by: Allie Kumari MD 09-Jun-2017 18:15:07
[2017-06-09 21:59] LABS: CREATINE KINASE MB 1.13 ng/mL (<4.55)
[2017-06-09 22:02] LABS: TROPONIN I 0.076 ng/mL
[2017-06-09] MEDS: PENICILLIN V POTASSIUM 500 MG TABLET PO SCH (22:32)
[2017-06-10] MEDS: ACETAMINOPHEN 325 MG TABLET PO PRN ×2 (01:49→08:41)
[2017-06-10] MEDS ORDERED: ENALAPRILAT DIHYDRATE INJ/PF 1.25 MG/1 ML SDV IV PRN (02:51)
[2017-06-10] MEDS ORDERED: ENALAPRILAT DIHYDRATE INJ/PF 1.25 MG/1 ML SDV IV ONE (03:04)
[2017-06-10 04:04] LABS: CREATINE KINASE MB 1.59 ng/mL (<4.55)
[2017-06-10 04:11] LABS: TROPONIN I 0.157 ng/mL
[2017-06-10] MEDS: PENICILLIN V POTASSIUM 500 MG TABLET PO SCH ×3 (05:18→22:01)
[2017-06-10] MEDS: OXYCODONE HCL IR 5 MG TABLET PO PRN ×3 (05:23→23:30)
[2017-06-10] MEDS ORDERED: MORPHINE SULFATE 10 MG/ML INJ IV PRN ×2 (06:03→07:52)
--- NOTE | 2017-06-10 08:55 | EKG REPORT ---
SEVERITY:- ABNORMAL ECG - SINUS RHYTHM LEFT ANTERIOR FASCICULAR BLOCK BORDERLINE R WAVE PROGRESSION, ANTERIOR LEADS BORDERLINE T ABNORMALITIES, ANTERIOR LEADS BORDERLINE PROLONGED QT INTERVAL : Confirmed by: Allie Kumari MD 10-Jun-2017 08:55:04
[2017-06-10] MEDS: ONDANSETRON 4 MG TAB.RAPDIS PO PRN ×2 (10:19→17:25)
[2017-06-10] MEDS ORDERED: AMINOPHYLLINE INJ/PF 250 MG/10 ML SDV IV ONE (11:14)
[2017-06-10] MEDS ORDERED: REGADENOSON INJ 0.4 MG/5 ML DISP.SYRIN IV ONE (11:14)
[2017-06-10] MEDS ORDERED: LANSOPRAZOLE 30 MG TAB.RAP.DR PO ONE (11:58)
[2017-06-10] MEDS ORDERED: ASPIRIN 81 MG TABLET, CHEWABLE PO ONE (11:59)
[2017-06-10] MEDS ORDERED: ASPIRIN 81 MG TABLET, CHEWABLE PO SCH (12:00)
--- NOTE | 2017-06-10 12:11 | PDOC CONSULTATION ---
Consultation Consult Date: 06/10/17 Attending physician:: RALF MUNOZTECORINA Consult reason:: Chest pain and jaw pain History of Present Illness Admission Date/PCP: 06/09/17 14:48 Patient complains of: Jaw pain and chest pain History of Present Illness: JESUS GIRALDO is a 56 year old female with a history of Takotsubo cardiomyopathy with an unremarkable cardiac cath several years ago who presents with chest pain. The patient reports that yesterday she had some pain in her left jaw. This morning she woke up and had a 1 minute of a left-sided substernal chest pain. She describes as a pressure 3 out of 10. It did not radiate. She had the jaw pain at a separate time as the chest pain. She denies any nausea vomiting or diaphoresis. She denies any palpitations or tachycardia. She reports that last year she had a cardiac catheterization that was essentially normal by her report. She was diagnosed with Takotsubo cardiomyopathy. The patient denies any cough. Denies any orthopnea PND or lower extremity edema. She denies any prolonged immobility. Denies any recent travel. Denies any fevers or chills. This history was reviewed and confirmed. We are waiting for records to come from [facility]. Past Medical History Cardiac Medical History: Reports: Myocardial Infarction - Diagnosed with Takotsubo cardiomyopathy with a normal cardiac cathete, Hypertension - no current meds Denies: Coronary Artery Disease Pulmonary Medical History: Reports: Bronchitis, Chronic Obstructive Pulmonary Disease (COPD) Denies: Asthma, Pneumonia, Tuberculosis EENT Medical History: Reports: Cataracts Neurological Medical History: Denies: Seizures Endocrine Medical History: Reports: None Renal/ Medical History: Reports: None Malignancy Medical History: Reports: None GI Medical History: Reports: None Denies: Hepatitis, Hiatal Hernia Musculoskeltal Medical History: Denies: Arthritis Skin Medical History: Reports: None Psychiatric Medical History: Reports: None Traumatic Medical History: Reports: None Hematology: Reports: Anemia - no meds Denies: Sickle Cell Disease Infectious Medical History: Reports: None Past Surgical History Past Surgical History: Reports: Tubal Ligation Denies: Amputation, Hysterectomy, Mastectomy, Pacemaker Social History Information Source: Patient Lives with: Alone Smoking Status: Current Every Day Smoker Cigarettes Packs Per Day: 1 Cigars Per Day: 0 Pipes Per Day: 0 Frequency of Alcohol Use: None Hx Recreational Drug Use: Yes Drugs: Marijuana Hx Prescription Drug Abuse: No - Advance Directive Resuscitation Status: Full Code Surrogate healthcare decision maker:: Patient is the surrogate decision-maker Family History Family History: Hypertension Parental Family History Reviewed: Yes Children Family History Reviewed: Yes Sibling(s) Family History Reviewed.: Yes Medication/Allergy Home Medications: No Home Medications 06/09/17 Allergies/Adverse Reactions: codeine [Codeine] Allergy (Verified 06/10/17 08:15) rash Review of Systems Review of Systems: Please see history of present illness and past medical history as wall. Constitutional: No fever or chills reported. Head : No recent chronic headaches, recent head injury. Eyes: No recent eye pain, diplopia, redness, discharge, acute visual changes. Ears: No recent chronic ear pain, acute hearing loss, ear discharge. Oral cavity: No recent ulcerations, bleeding, oral cavity discomfort. Neck: No recent acute neck pain reported. Hematologic: No recent easy bruising or bleeding or hematologic malignancy reported. Lymphatic: No recent lymphatic malignancy, chronic lymphadenopathy reported yet Cardiovascular system review: See history of present illness. Respiratory system review: No recent chronic cough, hemoptysis, blood clots in the lungs reported. Mild Shortness of breath on exertion Gastrointestinal system review: Negative for any recent acute or chronic abdominal pain, hematemesis, melena, recent change in bowel habits. Genitourinary system review: No recent acute or chronic hematuria, flank pain, UTI etc. reported. Skin system review: Negative for any recent abnormal bruising, no rash, no pruritus reported. Neurologic: No prior history of strokes, mini strokes, seizure disorder. Psychologic: No history of major psychosis or major depression reported. Musculoskeletal: Minor aches and pains reported. No acute joint swelling reported. Endocrine: No recent polyuria, polydipsia, recent heat or cold intolerance. Physical Exam Vital Signs: Temp Pulse Resp BP Pulse Ox 98.4 F 62 17 145/68 H 97 06/10/17 07:14 06/10/17 07:14 06/10/17 07:14 06/10/17 07:14 06/10/17 07:14 Intake & Output 06/09/17 06/10/17 06/11/17 06:59 06:59 06:59 Intake Total 420 Output Total 851 Balance -431 Weight 60.7 kg Exam: GENERAL: well-nourished and in no acute distress. Alert and oriented x3 HEAD: Atraumatic, normocephalic. EYES: Pupils equal round and reactive to light, extraocular movements intact, sclera anicteric, conjunctiva are normal. ENT: TMs normal, nares patent, oropharynx clear without exudates. Moist mucous membranes. No oral ulcerations or bleeding gums noted NECK: supple without lymphadenopathy. Trachea is central. No cervical or axillary lymphadenopathy noted. Carotids are 2+, JVD WNL LUNGS: Respiration seems nonlabored, no significant accessory muscle action noted. Breath sounds clear to auscultation bilaterally and equal noted. No wheezes rales or rhonchi noted. No significant dullness noted on percussion. CHEST: Palpation of the chest wall shows no significant chest wall tenderness. No other significant abnormalities noted. HEART: [place] [employer], No PSH, 1/6 DAVID aortic area, 1/6 couch systolic murmur mitral area, no rubs, no gallops. ABDOMEN: Soft, no significant tenderness appreciated, normoactive bowel sounds. No guarding, no rebound. No rigidity noted . No masses appreciated. EXTREMITIES: Pedal pulses are 1-2+, no calf tenderness noted. No clubbing or cyanosis. Negative pedal edema noted NEUROLOGICAL: Focused neurological exam showed no significant neurologic deficit. Normal speech, no focal weakness appreciated. PSYCH: Normal mood, normal affect. Judgment and insight within normal limits. SKIN: No significant ecchymosis, rash, ulcerations or signs of pruritus noted. MUSCULOSKELETAL EXAM: No significant joint swelling noted. Results Laboratory Results: 06/09/17 06/09/17 06/09/17 15:22 15:22 21:00 Creatine Kinase 86 78 CK-MB (CK-2) 1.06 Troponin I 0.081 06/09/17 06/10/17 06/10/17 21:00 03:25 03:25 Creatine Kinase 86 CK-MB (CK-2) 1.13 1.59 Troponin I 0.076 0.157 06/10/17 07:59 Creatine Kinase CK-MB (CK-2) Troponin I 0.148 EKG Comments: Sinus rhythm with minor nonspecific T-wave changes noted Impressions: Chest X-Ray 06/09/17 10:10 IMPRESSION: NO ACUTE RADIOGRAPHIC FINDING IN THE CHEST. Assessment & Plan - Diagnosis (1) Jaw pain Is this a current diagnosis for this admission?: Yes (2) Chest pain of uncertain etiology Is this a current diagnosis for this admission?: Yes (3) Elevated troponin Is this a current diagnosis for this admission?: Yes (4) Takotsubo cardiomyopathy Is this a current diagnosis for this admission?: Yes (5) Hypertension Qualifiers: Hypertension type: essential hypertension Qualified Code(s): I10 - Essential (primary) hypertension Is this a current diagnosis for this admission?: Yes - Notes Notes: Patient started on beta-blockers, statin, aspirin. CTA and 2D echo ordered. Records from [facility] ordered. Scheduled patient for a nuclear stress test tomorrow. Patient is a middle-aged woman with history of smoking, hypertension, who presents with chest pain and is noted to have positive troponin I, minor nonspecific T-wave changes. Exact etiology not clear but could be acute coronary syndrome. Patient to be treated with aspirin, beta-blockers, statins. , TANYA/ARB. Have ordered a CTA chest to rule out outside chance to look for any pulmonary embolism, aortic dissection etc. Patient to have a 2D echocardiogram for risk stratification and a nuclear stress test. Patient has a history of takotsubo cardiomyopathy. Preferred treatment is beta- abhishek therapy. Have started patient on metoprolol succinate at low dose and gradually increase as tolerated. Hypertension: Reasonably well controlled. Blood pressure goal in this patient is 135/85 or less. This was discussed with the patient. Currently blood pressure under reasonable control. Better medication for this patient are TANYA inhibitor/ARB/beta abhishek etc. discussed side effects of uncontrolled hypertension and also severe hypotension. Patient has history of chronic smoking. Discussed detrimental effect of chronic smoking including worsening COPD, increased risk of cardiovascular events, cerebrovascular events, cancer and multiple other side effects of smoking. The benefits of smoking cessation discussed. Patient unwilling to give acommitment to quit. Patient informed that we'll be happy to help should pt decide to quit. Continue nicotine patch while inpatient. - Time Time Spent: 50 to 70 Minutes - CODE STATUS was discussed, patient remains full code. Surrogate decision-maker unchanged. Multiple medical problems were addressed. More than 50% of the time spent coordinating care, discussing management plans with involved caregivers. Management plans discussed with involved personnels. Medical decision making was of moderate to high complexity , patient's has multiple comorbidities. Medications reviewed and adjusted accordingly: Yes
[2017-06-10] MEDS ORDERED: METOPROLOL SUCCINATE 25 MG TAB.SR.24H PO ONE (13:00)
--- NOTE | 2017-06-10 13:13 | PDOC PROGRESS REPORT ---
Subjective Progress Note for:: 06/10/17 Subjective:: Denies any chest pain at this time. Physical Exam Vital Signs: Temp Pulse Resp BP Pulse Ox 98.8 F 62 16 159/70 H 99 06/10/17 11:18 06/10/17 11:18 06/10/17 11:18 06/10/17 11:18 06/10/17 11:18 Intake & Output 06/09/17 06/10/17 06/11/17 06:59 06:59 06:59 Intake Total 420 Output Total 851 Balance -431 Weight 60.7 kg General appearance: PRESENT: no acute distress Eye exam: PRESENT: conjunctiva pink. ABSENT: scleral icterus Ear exam: PRESENT: normal external ear exam Mouth exam: PRESENT: moist, tongue midline Neck exam: ABSENT: JVD Respiratory exam: PRESENT: clear to auscultation brenda. ABSENT: rales, rhonchi, wheezes Cardiovascular exam: PRESENT: RRR. ABSENT: diastolic murmur, rubs, systolic murmur GI/Abdominal exam: PRESENT: normal bowel sounds, soft. ABSENT: distended, guarding, mass, organolmegaly, rebound, tenderness Extremities exam: ABSENT: calf tenderness, clubbing, pedal edema Neurological exam: PRESENT: alert, awake, oriented to person, oriented to place , oriented to time, oriented to situation, CN II-XII grossly intact. ABSENT: motor sensory deficit Psychiatric exam: PRESENT: appropriate affect Skin exam: PRESENT: dry, intact, warm. ABSENT: cyanosis, rash Results Laboratory Results: 06/09/17 06/09/17 06/09/17 15:22 15:22 21:00 Creatine Kinase 86 78 CK-MB (CK-2) 1.06 Troponin I 0.081 06/09/17 06/10/17 06/10/17 21:00 03:25 03:25 Creatine Kinase 86 CK-MB (CK-2) 1.13 1.59 Troponin I 0.076 0.157 06/10/17 07:59 Creatine Kinase CK-MB (CK-2) Troponin I 0.148 Impressions: Chest X-Ray 06/09/17 10:10 IMPRESSION: NO ACUTE RADIOGRAPHIC FINDING IN THE CHEST. Assessment & Plan - Diagnosis (1) Chest pain of uncertain etiology Is this a current diagnosis for this admission?: Yes Plan: The patient is currently chest pain-free but her troponins have increased somewhat. Cardiology has been consulted and they are recommending a CT angiogram of the chest along with an echocardiogram and stress test. She has been started on aspirin. Cardiology's help is greatly appreciated. She does have history of Takutsubo's cardiomyopathy. (2) Pain, dental Is this a current diagnosis for this admission?: Yes Plan: Patient has been given Pen-Vee K. (3) Takotsubo cardiomyopathy Is this a current diagnosis for this admission?: Yes Plan: Patient reports having a normal cardiac catheterization in October of this year. - Time Time Spent with patient: 25-34 minutes - Inpatient Certification Medical Necessity: Need Close Monitoring Due to Risk of Patient Decompensation - Plan Summary Plan Summary: Have changed the patient to an inpatient given that she requires further testing.
--- NOTE | 2017-06-10 14:39 | RADIOLOGY REPORT (SQ) ---
EXAM DESCRIPTION: CTA CHEST COMPLETED DATE/TIME: 06/10/2017 2:26 pm REASON FOR STUDY: Chest pain COMPARISON: None. TECHNIQUE: CT scan of the chest performed using helical scanning technique with dynamic intravenous contrast injection. Images reviewed with lung, soft tissue and bone windows. Reconstructed coronal and sagittal MPR images reviewed. Additional 3 dimensional post-processing performed to develop Maximal Intensity Projection images (ME P). All images stored on PACS. All CT scanners at this facility use dose modulation, iterative reconstruction, and/or weight based d osing when appropriate to reduce radiation dose to as low as reasonably achievable (ALARA). [facility]: Dose Right [facility]: CareDose [facility]: Dose Right [facility]: Teradose 4D [facility]: Total Prestige CONTRAST TYPE AND DOSE: contrast/concentration: Isovue 370.00 mg/ml; Total Contrast Delivered: 59.0 ml; Total Saline Delivered: 104.0 ml Contrast bolus optimized for the pulmonary arteries. Not diagnostic for the aorta. RENAL FUNCTION: Creatinine 0.64 RADIATION DOSE: Up-to-date CT equipment and radiation dose reduction techniques were employed. CTDIv ol: 4.7 - 5.6 mGy. DLP: 173 mGy-cm. . LIMITATIONS: None. FINDINGS: LUNGS AND PLEURA: No masses, infiltrates, pneumothorax. No pleural effusions, calcificati ons. AORTA AND GREAT VESSELS: No aneurysm. Contrast bolus not optimized for the aorta. HEART: No pericardial effusion. No significant coronary artery calcifications. PULMONARY ARTERIES: No emboli visualized in the main pulmonary arteries or the segmental branches. HILAR AND MEDIASTINAL STRUCTURES: No identified masses or abnormal nodes. HARDWARE: None in the chest. UPPER ABDOMEN: No significant findings. Limited exam. THYROID AND OTHER SOFT TISSUES: Unremarkable thyroid. Ovoid mass in the right lateral upper breast w ith Hounsfield units in the 20s. This is probably chronic and looks smaller compared to 2011. Proba ble cyst. Patient should still be having regular yearly mammography (presumably elsewhere as I find no mammograms at this institution). BONES: Normal. 3D MIPS: Confirm above findings. OTHER: No other significant finding. IMPRESSION: 1. No acute or suspicious thoracic abnormality. No pulmonary embolus or lung infiltrate s. COMMENT: Quality ID # [id number]: Final reports with documentation of one or more dose reduction techniques (e.g., Automated exposure control, adjustment of the mA and/or kV according to patient size, use of iterative reconstruction technique) TECHNICAL DOCUMENTATION: JOB ID: [id number] [employer] Marco [employer]- All Rights Reserved
--- NOTE | 2017-06-10 19:30 | XCELERA REPORT ---
[address] [address] Transthoracic Echocardiogram Report Name: JESUS GIRALDO Age: 56 yrs Gender: Female : 1960 Patient Status: Inpatient Patient Location: [address] [place] [address] Study Date: 06/10/2017 01:18 PM Height: 63 in Weight: 133 lb BSA: 1.6 m2 Procedure: A complete two-dimensional transthoracic echocardiogram was performed (2D, M-mode, spectral and color flow Doppler). The study was technically difficult with many images being suboptimal in quality. Reason For Study: CP Ordering Physician: JUSTO GALO Performed By: Aixa Bauer Interpretation Summary Left ventricular systolic function is low normal. There is borderline concentric left ventricular hypertrophy. The left ventricle is grossly normal size. Doppler measurements suggest pseudonormalized left ventricular relaxation, which is associated with grade II/IV or mild to moderate diastolic dysfunction Wall motion cannot be accurately commented on, but no definite regional wall motion abnormalities noted. The right ventricular systolic function is normal. The left atrial size is normal. The right atrium is normal in size There is a mild amount of mitral regurgitation There is no mitral valve stenosis. No aortic regurgitation is present. There is no aortic valve stenosis There is a trace or physiologic amount of tricuspid regurgitation Tricuspid regurgitation jet envelope not well defined to measure RV systolic pressure accurately. The aortic root is not well visualized. The inferior vena cava appeared normal and decreased > 50% with respiration (RAP 5-10 mmHg) Minimal pericardial effusion. MMode/2D Measurements & Calculations RVDd: 2.0 cm LVIDd: 4.8 cm FS: 32.4 % Ao root diam: 2.5 cm IVSd: 0.87 cm LVIDs: 3.2 cm EDV(Teich): 106.3 ml LVPWd: 0.87 cm ESV(Teich): 41.9 ml Ao root area: 5.1 cm2 EF(Teich): 60.6 % Doppler Measurements & Calculations MV E max dav: MV dec slope: Ao V2 max: LV V1 max P.2 cm/sec 127.8 cm/sec 4.7 mmHg MV A max dav: 377.3 cm/sec2 Ao max PG: LV V1 max: 76.4 cm/sec MV dec time: 6.5 mmHg 108.6 cm/sec MV E/A: 1.0 0.21 sec MR max dav: PA V2 max: TR max dav: 455.1 cm/sec 81.6 cm/sec 200.2 cm/sec MR max PG: PA max P.7 mmHg TR max P.8 mmHg 16.2 mmHg Left Ventricle The left ventricle is grossly normal size. There is borderline concentric left ventricular hypertrophy. Left ventricular systolic function is low normal. Doppler measurements suggest pseudonormalized left ventricular relaxation, which is associated with grade II/IV or mild to moderate diastolic dysfunction. Wall motion cannot be accurately commented on, but no definite regional wall motion abnormalities noted. Right Ventricle The right ventricle is grossly normal size. There is normal right ventricular wall thickness. The right ventricular systolic function is normal. Atria The right atrium is normal in size. The left atrial size is normal. Interarterial septum not well visualized and not well dopplered. Cannot comment on ASD/PFO presence. Mitral Valve The mitral valve is grossly normal. There is no mitral valve stenosis. There is a mild amount of mitral regurgitation. Aortic Valve The aortic valve is grossly normal. There is no aortic valve stenosis. No aortic regurgitation is present. Tricuspid Valve The tricuspid valve is not well visualized, but is grossly normal. There is no tricuspid stenosis. There is a trace or physiologic amount of tricuspid regurgitation. Tricuspid regurgitation jet envelope not well defined to measure RV systolic pressure accurately. Pulmonic Valve The pulmonic valve is not well visualized. Great Vessels The aortic root is not well visualized. The inferior vena cava appeared normal and decreased > 50% with respiration (RAP 5-10 mmHg). Effusions Minimal pericardial effusion. : JUSTO GALO > Justo Galo
[2017-06-10] MEDS ORDERED: ATORVASTATIN CALCIUM 40 MG TABLET PO SCH (22:00)
[2017-06-10] MEDS: METOPROLOL SUCCINATE 25 MG TAB.SR.24H PO SCH (22:01)
[2017-06-11] MEDS: ACETAMINOPHEN 325 MG TABLET PO PRN (01:49)
[2017-06-11] MEDS: PENICILLIN V POTASSIUM 500 MG TABLET PO SCH ×2 (05:08→14:24)
--- NOTE | 2017-06-11 09:20 | Physician Advisory Note ---
Physician Advisor ProgressNote .: [facility], I have reviewed the medical record for this patient. Physician Advisor Statement: Please be sure to specify in subsequent notes & DCSummary the most likely cause of pt's CP - 1. "CP, possibly ____" [ACS?, ...] Thanks! CK
[2017-06-11] MEDS ORDERED: ASPIRIN 81 MG TABLET, ENT COATED PO SCH (10:00)
[2017-06-11] MEDS: METOPROLOL SUCCINATE 25 MG TAB.SR.24H PO SCH (12:00)
--- NOTE | 2017-06-11 14:03 | DRAGON STRESS TEST REPORT ---
INTRAVENOUS LEXISCAN CARDIOLITE STRESS TEST USING SINGLE PHOTON EMMISION COMPUTERIZED TOMOGRAPHIC. DATE OF PROCEDURE: June 11, 2017 INDICATION : Chest pain CARDIAC RISK FACTORS: Hypertension, dyslipidemia, tobacco abuse RESTING EKG: Sinus rhythm, downsloping ST segment depression and T-wave inversion inferior lead. STRESS EKG: No significant changes noted with LexiScan bolus REASON FOR TERMINATION: Protocol. PROCEDURE REPORT: Baseline heart rate 67 beats per minute with blood pressure of 135/71. Patient had no significant complaints. Heart rate at 2 minutes post bolus 107 with a blood pressure of 159/91. 3 minutes post bolus heart rate 90 with blood pressure of 147/86. No significant EKG changes were noted. Patient had no significant complaints during the procedure or postprocedure. Patient injected with Aminophyllin 75 mg at 3 minutes or later after Lexiscan bolus. CONCLUSIONS: Normal EKG and hemodynamic response to IV LexiScan. NUCLEAR DATA: At rest the patient was given 10.0 millicuries of technetium 99 sestamibi injected intravenously. As per protocol rest gated SPECT images were obtained. Subsequently the patient was given intravenous LexiScan at a dose of 0.4 mg in 5 mL intravenously, followed by flush with normal saline. Subsequently the stress dose of 32.2 millicuries of technetium 99 sestamibi was injected intravenously. As per protocol stress gated images were obtained. NUCLEAR INTERPRETATION: Both raw and processed data were used for interpretation. Visual, qualitative, computer-generated quantitative data was used. There was good myocardial uptake of technetium compound. Motion artifact and soft tissue attenuations were noted. Increased visceral uptake was noted. No definitive areas of transient perfusion defect noted. No definitive areas of fixed perfusion defect or scars noted. EKG gated imaging showed LV EF at 64 %, rest and stress gated EF similar visually. T. I D. ratio was 1.05. Lung heart ratio noted to be within normal limits 0.36. No significant extracardiac and abnormal radiotracer activities were noted. RV free wall uptake was noted to be WNL. IMPRESSION: Also refer to comments under nuclear interpretation. Also test results needs to be interpreted in the context of pretest probability. 1. There is no definitive scintigraphic evidence of LexiScan induced myocardial ischemia. 2. There is no definitive scintigraphic evidence of myocardial infarction/scar. 3. EKG gated imaging shows left ventricular ejection fraction of approximately 64 %. 4. Clinical correlation requested as occasionally single vessel disease or balanced ischemia could be missed. In approximately 10% of the cases Lexiscan may not cause adequate vasodilatory stress. RECOMMENDATIONS: Aggressive risk factor modification, medical therapy. Clinical correlation with echocardiogram derived ejection fraction. Inability to exercise by itself can lead to increased cardiovascular event risks. Consider cardiology consultation and or follow-up if clinically indicated. I AM AVAILABLE FOR CARDIOLOGY CONSULTATION AND FOLLOWUP IF REQUESTED BY PMD Justo Thomas M.D., [employer] Elevator Worker program officer, Board certified in cardiovascular diseases, Nuclear cardiology, Echocardiography Cardiac CT and cardiac MRI Ph. [phone] [facility]
[2017-06-11 17:21] VITALS: BP 107/52
--- NOTE | 2017-06-11 18:40 | PDOC DISCHARGE SUMMARY ---
General - Admit/Disc Date/PCP Admission Date/Primary Care Provider: 06/10/17 13:06 Discharge Date: 06/11/17 - Discharge Diagnosis (1) Ludwigs angina Is this a current diagnosis for this admission?: Yes (2) Elevated troponin Is this a current diagnosis for this admission?: Yes (3) Hypertension Is this a current diagnosis for this admission?: Yes (4) Pain, dental Is this a current diagnosis for this admission?: Yes (5) Takotsubo cardiomyopathy Is this a current diagnosis for this admission?: Yes (6) Tobacco abuse Is this a current diagnosis for this admission?: Yes - Additional Information Resuscitation Status: Full Code Discharge Diet: Cardiac Discharge Activity: Activity As Tolerated Home Medications: Aspirin [Ecotrin 81 mg EC Tablet] 81 mg PO DAILY #90 tabec 06/11/17 Metoprolol Succinate [Toprol Xl 25 mg Tab.sr] 50 mg PO Q12 #60 tab.sr.24h Penicillin V Potassium [Penicillin Vk 500 mg Tablet] 500 mg PO Q8 #30 tablet 01/21 Simvastatin 20 mg PO QHS #30 tablet 06/11/17 History of Present Illness History of Present Illness: Please see H&P for full HPI Hospital Course Hospital Course: JESUS GIRALDO is a 56 year old female with a history of Takotsubo cardiomyopathy with an unremarkable cardiac cath several years ago who presents with chest pain. The patient reports that yesterday she had some pain in her left jaw. This morning she woke up and had a 1 minute of a left-sided substernal chest pain. She describes as a pressure 3 out of 10. It did not radiate. She had the jaw pain at a separate time as the chest pain. She denies any nausea vomiting or diaphoresis. She denies any palpitations or tachycardia. She reports that last year she had a cardiac catheterization that was essentially normal by her report. She was diagnosed with Takotsubo cardiomyopathy. The patient denies any cough. Denies any orthopnea PND or lower extremity edema. She denies any prolonged immobility. Denies any recent travel. Denies any fevers or chills. Patient was observed on telemetry and had no change in her EKG, but did have a minor elevation of her troponin. She underwent stress test and this was found to be negative. Patient's mildly elevated troponin was thought to be secondary to her history of cardiomyopathy, however patient does have significant dental infection which is being treated with Pen-VK. Patient thought to have some of her chest pain secondary to Elías's angina. She is advised to follow-up as an outpatient and to return for worsening symptoms. She is also advised to stop smoking. Patient is advised to return for any worsening symptoms at which time she should be sent for repeat cardiac catheterization. She is advised to follow-up. Physical Exam Vital Signs: Temp Pulse Resp BP Pulse Ox 98.8 F 64 16 107/52 L 99 06/11/17 17:18 06/11/17 17:18 06/11/17 17:18 06/11/17 17:18 06/11/17 17:18 Intake & Output 06/10/17 06/11/17 06/12/17 06:59 06:59 06:59 Intake Total 1440 Output Total 1200 Balance 240 Weight 60.7 kg Exam: General: Awake alert and oriented x3, no acute respiratory distress HEENT: AT/NC, PERRL, EOMI, oropharynx is moist, pink, no scleral icterus, no conjunctival injection, poor dentition Neck: No JVD, trachea midline Chest: Clear to auscultation bilaterally, no wheezes rhonchi or rales CV: Regular rate and rhythm, normal S1 and S2, no murmur, rub, or gallop Abdomen: Soft, nontender to palpation, nondistended, active bowel sounds; no rebound, rigidity, or guarding Extremities: No cyanosis, clubbing or edema Neuro: Cranial nerves II through XII are grossly intact without focal deficits; awake alert and oriented x3 Psych: Normal mood and affect Results Laboratory Results: 06/09/17 06/09/17 06/09/17 09:45 15:22 21:00 Hgb 16.9 H Troponin I 0.081 0.076 06/10/17 06/10/17 03:25 07:59 Hgb Troponin I 0.157 0.148 Impressions: Chest X-Ray 06/09/17 10:10 IMPRESSION: NO ACUTE RADIOGRAPHIC FINDING IN THE CHEST. Chest/Abdomen CTA 06/10/17 12:00 IMPRESSION: 1. No acute or suspicious thoracic abnormality. No pulmonary embolus or lung infiltrates. Qualifiers PATEINT BEING DISCHARGED WITH ANY OF THE FOLLOWING DIAGNOSIS?: No Plan Time Spent: Less than 30 Minutes
--- NOTE | 2017-06-11 20:15 | PDOC PROGRESS REPORT ---
Subjective Progress Note for:: 06/11/17 Subjective:: Patient seems to be doing better with significant improvement. Pt is denying any chest arm or neck discomfort. Patient denying any PND, orthopnea. Patient denied any sustained palpitations, dizziness, syncope, near syncope. Patient denying any fever chills. Patient denying any other significant discomfort. Patient is maintaining sinus rhythm. Tobacco smoking discussed. Patient advised on cessation. Nuclear stress test procedure was explained to the patient in detail. Risks benefits were discussed and informed consent was obtained. Alternatives were discussed. Patient informed that based on risk factors, physical exam, lab data findings and symptoms there is at least intermediate probability of underlying CAD. Nuclear stress test procedure was therefore scheduled. Review of systems: Rest review of systems negative. Medications: Medications have been reviewed. Physical Exam Vital Signs: Temp Pulse Resp BP Pulse Ox 98.8 F 64 16 107/52 L 99 06/11/17 17:18 06/11/17 17:18 06/11/17 17:18 06/11/17 17:18 06/11/17 17:18 Intake & Output 06/10/17 06/11/17 06/12/17 06:59 06:59 06:59 Intake Total 1440 Output Total 1200 Balance 240 Weight 60.7 kg Exam: GENERAL: well-nourished and in no acute distress. Alert and oriented x3 HEAD: Atraumatic, normocephalic. EYES: Pupils equal round and reactive to light, extraocular movements intact, sclera anicteric, conjunctiva are normal. ENT: TMs normal, nares patent, oropharynx clear without exudates. Moist mucous membranes. No oral ulcerations or bleeding gums noted NECK: supple without lymphadenopathy. Trachea is central. No cervical or axillary lymphadenopathy noted. Carotids are 2+, JVD WNL LUNGS: Respiration seems nonlabored, no significant accessory muscle action noted. Breath sounds clear to auscultation bilaterally and equal noted. No wheezes rales or rhonchi noted. No significant dullness noted on percussion. CHEST: Palpation of the chest wall shows no significant chest wall tenderness. No other significant abnormalities noted. 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 ABDOMEN: Soft, no significant tenderness appreciated, normoactive bowel sounds. No guarding, no rebound. No rigidity noted . No masses appreciated. EXTREMITIES: Pedal pulses are 1-2+, no calf tenderness noted. No clubbing or cyanosis.trace to 1+ pedal edema noted NEUROLOGICAL: Focused neurological exam showed no significant neurologic deficit. Normal speech, no focal weakness appreciated. PSYCH: Normal mood, normal affect. Judgment and insight within normal limits. SKIN: No significant ecchymosis, rash, ulcerations or signs of pruritus noted. MUSCULOSKELETAL EXAM: No significant joint swelling noted. Results EKG Comments: Telemetry strips reviewed. It showed sinus rhythm, no sustained tachycardia or bradycardia arrhythmia or other dysrhythmias noted. Impressions: Chest X-Ray 06/09/17 10:10 IMPRESSION: NO ACUTE RADIOGRAPHIC FINDING IN THE CHEST. Chest/Abdomen CTA 06/10/17 12:00 IMPRESSION: 1. No acute or suspicious thoracic abnormality. No pulmonary embolus or lung infiltrates. Assessment & Plan - Diagnosis (1) Jaw pain Is this a current diagnosis for this admission?: Yes (2) Chest pain of uncertain etiology Is this a current diagnosis for this admission?: Yes (3) Elevated troponin Is this a current diagnosis for this admission?: Yes (4) Takotsubo cardiomyopathy Is this a current diagnosis for this admission?: Yes (5) Hypertension Qualifiers: Hypertension type: essential hypertension Qualified Code(s): I10 - Essential (primary) hypertension Is this a current diagnosis for this admission?: Yes - Notes Notes: Jaw pain and chest pain: Exact etiology not clear. Possibly related to severe hypertension on presentation. Discussed that cannot rule out coronary vasospasm related to smoking. Could be stress related as well. Cannot rule out microvascular angina. Nuclear stress test results were negative. 2D echo had shown relatively well-preserved LVEF. Patient being advised aggressive risk factor modification and medical management with close cardiology follow-up. Elevated troponin I: Exact etiology not clear. Possibly related to severe hypertension on presentation in setting of underlying cardiomyopathy. 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 Hypertension: Blood pressure goal is 135/85 or less. This was discussed with the patient. - Time Time Spent with patient: Patient was seen multiple times. Total time exceeds 40 minutes. In the morning nuclear stress test procedure, risks benefits, alternatives were discussed. Patient seen during the stress test. Patient also seen after stress test when results were discussed with the patient in detail. Patient's questions were answered. Nuclear stress test results were discussed with the patient. Patient was informed that no definitive evidence of pharmacologic stress- induced ischemia noted. No definite fixed defects were noted. Patient informed that occasionally significant single vessel disease or balanced ischemia could be missed. However based on the current study results, would recommend aggressive risk factor modification and medical therapy. It may also be worthwhile to consider evaluation or empiric management of other causes of chest pain. 2D echo results discussed. CT scan report discussed. Patient offered follow-up with me. Should no other cause be found and if persistent in having chest pain, then cardiac catheterization should be considered. Right now , recommendations are for aggressive risk factor modification and medical management. Time with patient: Greater than 35 minutes - CODE STATUS was discussed, patient remains full code. Surrogate decision-maker unchanged. Multiple medical problems were addressed. More than 50% of the time spent coordinating care, discussing management plans with involved caregivers. Management plans discussed with involved personnels. Medical decision making was of moderate to high complexity, patient's has multiple comorbidities. Medications reviewed and adjusted accordingly: Yes
== END 2017-06-11 17:35 | disposition home or self-care (01) | DRG 158 ==
LOC: ER 09:09 → UNDOADMOB 14:20 → EH 14:20 → 4N 15:50 → OBSVTOIN 06-10 13:06
PROC: 3E0234Z Introduction of Serum, Toxoid and Vaccine into Muscle, Percutaneous Approach (ICD-10-PCS; principal; 2017-06-11)
DX: K12.2 Cellulitis and abscess of mouth (principal); I51.81 Takotsubo syndrome; R68.84 Jaw pain; R07.9 Chest pain, unspecified; I10 Essential (primary) hypertension; J44.9 Chronic obstructive pulmonary disease, unspecified; D64.9 Anemia, unspecified; K08.89 Other specified disorders of teeth and supporting structures; F17.210 Nicotine dependence, cigarettes, uncomplicated; Z60.2 Problems related to living alone; I25.2 Old myocardial infarction; Z23 Encounter for immunization; Z71.6 Tobacco abuse counseling
CPT/HCPCS: 36415; 71010; 71275; 78452; 80053; 82550; 82553; 84484; 85025; 85610; 90686; 93005; 93010; 93017; 93306; 96360; 99285; A9500; J0280; J2270; J2785; J3490; J7030; Q9969; S0119

== ENCOUNTER 2017-06-15 15:50 | Emergency (ER) | payer SELFPAY ==
[2017-06-15] MEDS ORDERED: HYDROCODONE/ACETAMINOPHEN 5-325 MG TABLET PO ONE (17:14)
--- NOTE | 2017-06-15 17:16 | ER Document Report ---
ED Oral Problem - General Chief Complaint: Toothache Stated Complaint: TOOTHACHE Time Seen by Provider: 06/15/17 17:05 Mode of Arrival: Ambulatory Information source: Patient Notes: 56-year-old female presents to ED for dental pains. She states she was seen last week and diagnosed with Elías's angina was admitted to the hospital for several days was discharged home with penicillin cholesterol medications and blood pressure medications and she is taken a baby aspirin a day. She dates states she does not have any chest pain but she was feeling better with the dental pain and to yesterday's came back pretty bad. She states she has been taking her Penicillin VK as prescribed. TRAVEL OUTSIDE OF THE [place] IN LAST 30 DAYS: No - Related Data Allergies/Adverse Reactions: codeine [Codeine] Allergy (Verified 06/10/17 08:15) rash Past Medical History - General Information source: Patient - Social History Smoking Status: Current Every Day Smoker Cigarette use (# per day): Yes - 3 cigarettes a day Chew tobacco use (# tins/day): No Smoking Education Provided: Yes - Less than 1 minute. She states she is trying to stop Frequency of alcohol use: None Drug Abuse: Marijuana - States she is trying to stop Occupation: [employer] Lives with: Spouse/Significant other Family History: Hypertension, Other - States she is adopted and does not know her family medical history Patient has suicidal ideation: No Patient has homicidal ideation: No - Past Medical History Cardiac Medical History: Reports: Hx Coronary Artery Disease, Hx Heart Attack - Diagnosed with Takotsubo cardiomyopathy with a normal cardiac cathete, Hx Hypercholesterolemia, Hx Hypertension Pulmonary Medical History: Reports: Hx Bronchitis, Hx COPD EENT Medical History: Reports: None Neurological Medical History: Reports: None Endocrine Medical History: Reports: None Renal/ Medical History: Reports: None GI Medical History: Reports: Hx Irritable Bowel Musculoskeltal Medical History: Reports None Skin Medical History: Reports None Psychiatric Medical History: Reports: None Traumatic Medical History: Reports: None Infectious Medical History: Reports: None Past Surgical History: Reports: Hx Tubal Ligation - Immunizations Hx Diphtheria, Pertussis, Tetanus Vaccination: Yes - 2006 Review of Systems - Review of Systems Constitutional: No symptoms reported EENT: Dental problem Cardiovascular: No symptoms reported. denies: Chest pain, Orthopnea, Dyspnea, Syncope, Dizziness, Lightheaded Respiratory: No symptoms reported Gastrointestinal: No symptoms reported Genitourinary: No symptoms reported Female Genitourinary: No symptoms reported Musculoskeletal: No symptoms reported Skin: No symptoms reported Hematologic/Lymphatic: No symptoms reported Neurological/Psychological: No symptoms reported -: Yes All other systems reviewed and negative Physical Exam - Vital signs Vitals: Temp Pulse Resp BP Pulse Ox 98.7 F 70 18 203/92 H 97 06/15/17 16:09 06/15/17 16:09 06/15/17 16:09 06/15/17 16:09 06/15/17 16:09 Interpretation: Hypertensive - 185/81 Notes: Vital signs temp is 99.2 pulse ox 98 pulse 63 respirations 20 blood pressure 185 /81 - General General appearance: Appears well, Alert - HEENT Head: Normocephalic, Atraumatic Eyes: Normal Pupils: PERRL Ears: Normal External canal: Normal Tympanic membrane: Normal Sinus: Normal Nasal: Normal Mouth/Lips: Caries Teeth diagram: 1 - Multiple dental cavities and multiple areas of her jaw she has for very bad dental cavities with some mild redness and swelling to tooth #16, 15, 14, and 13 Pharynx: Normal - Respiratory Respiratory status: No respiratory distress Chest status: Nontender Breath sounds: Normal Chest palpation: Normal - Cardiovascular Rhythm: Regular Heart sounds: Normal auscultation Murmur: No - Abdominal Inspection: Normal Distension: No distension Bowel sounds: Normal Tenderness: Nontender Organomegaly: No organomegaly - Back Back: Normal, Nontender - Extremities General upper extremity: Normal inspection, Nontender, Normal color, Normal ROM , Normal temperature General lower extremity: Normal inspection, Nontender, Normal color, Normal ROM , Normal temperature, Normal weight bearing. No: Sharee's sign - Neurological Neuro grossly intact: Yes Cognition: Normal Orientation: AAOx4 Miguel Coma Scale Eye Opening: Spontaneous Roby Coma Scale Verbal: Oriented Roby Coma Scale Motor: Obeys Commands Roby Coma Scale Total: 15 Speech: Normal Motor strength normal: LUE, RUE, LLE, RLE Sensory: Normal - Psychological Associated symptoms: Normal affect, Normal mood - Skin Skin Temperature: Warm Skin Moisture: Dry Skin Color: Normal Course - Re-evaluation Re-evalutation: 06/15/17 17:32 Will give patient [place] dispense pack and prescription for clindamycin and a clindamycin while in the emergency room. Patient states she needs to take her blood pressure medicine this evening. She will take it when she gets home. - Vital Signs Vital signs: Temp Pulse Resp BP Pulse Ox 98.7 F 88 20 156/90 H 97 06/15/17 16:09 06/15/17 17:59 06/15/17 17:59 06/15/17 17:59 06/15/17 17:59 Discharge - Discharge Clinical Impression: Pain due to dental caries Condition: Stable Disposition: HOME, SELF-CARE Additional Instructions: TOOTHACHE: Your pain is due to dental decay. The tooth must be repaired in order for you to feel better. You will, therefore, be referred to a dentist. We do not have dentists on the staff at [facility]. Severe swelling or drainage around a tooth usually means a dental abscess. This also requires evaluation and treatment by the dentist, but antibiotics may be prescribed while awaiting dental treatment. You should be rechecked immediately if you develop major swelling of the face, increasing pain, a lump in the jaw or gums, headache, difficulty swallowing, or fever. ORAL NARCOTIC MEDICATION: You have been given a [place] dispense pack for pain control. This medication is a narcotic. It's best taken with food, as nausea can result if taken on an empty stomach. Don't operate machinery or drive within six hours of taking this medication. Do not combine this medicine with alcohol, or with any medication which can cause sedation (such as cold tablets or sleeping pills) unless you get permission from the physician. Narcotics tend to cause constipation. If possible, drink plenty of fluids and eat a diet high in fiber and fruits. Please be aware that prescription narcotics also have the potential for abuse. People become addicted to these medications because of the general sense of wellbeing that they induce. This feeling along with a significant reduction in tension, anxiety, and aggression provides a stimulating seductive quality to these drugs. Once your pain is under control, we encourage you to discard your unused narcotics. CLINDAMYCIN: You have been given a prescription for the antibiotic clindamycin. It is often prescribed for infections in the mouth, such as dental infections or abscesses, and for skin infections due to MRSA. It's important that you take all the medication, unless instructed otherwise by your physician. Failure to complete the entire course can result in relapse of your condition. Common side effects of antibiotics include nausea, intestinal cramping, or diarrhea. Women may develop vaginal yeast infections, and babies can get yeast (thrush) in the mouth following the use of antibiotics. Contact your physician if you develop significant side effects from this medication. Allergy to this antibiotic can result in hives, wheezing, faintness, or itching. If symptoms of allergy occur, stop the medication and call the doctor. FOLLOW-UP CARE: You have been referred for follow-up care to the dentists listed below. Call the dentists office for an appointment as you were instructed or within the next two days. If you experience worsening or a significant change in your symptoms, notify the physician immediately or return to the Emergency Department at any time for re-evaluation. [facility] [address] [place], [place] Thursday mornings, by appointment [facility] [address] [place] [address] [facility] [place] [address] [facility] [address] [facility] Emergency Department [facility] [address] [email or web address] [address] [place] [address] Thursday- 8:00am to 5:00 pm Will see patients from other [facility]. Charges based on income and family size and accepts Medicare, Medicaid, and Insurances Will pull molars [facility] [place] [address] Hours of Operation 8:00 am - 4:30 pm weekdays The following dental offices accept Medicaid: [facility] Dr. Damico Dr. Espnioza Dr. Rojas Dr. Hung Louis Chan, Nikolai, and Rebeka oral surgery Dr. Villanueva ([place]) Dr. Avendano ([place]) [facility] Drs. Alaniz ([place]) Dr. Carranza ([place]) [facility] Dr. Tejeda ([place]) Drs. Rey and ([place]) Medicaid Care Line Prescriptions: Clindamycin HCl [Cleocin 300 mg Capsule] 300 mg PO Q6 #28 capsule Forms: Elevated Blood Pressure
[2017-06-15] MEDS ORDERED: HYDROCODONE/ACETAMINOPHEN 5-325 MG 6 TAB/DSPK PO PRN (17:20)
[2017-06-15] MEDS ORDERED: CLINDAMYCIN HCL 150 MG CAPSULE PO ONE (17:20)
[2017-06-15 18:18] VITALS: BP 156/90
== END 2017-06-15 17:59 | disposition home or self-care (01) ==
LOC: ER 15:50
DX: K02.9 Dental caries, unspecified (principal); K08.89 Other specified disorders of teeth and supporting structures; F17.210 Nicotine dependence, cigarettes, uncomplicated
CPT/HCPCS: 99282

== ENCOUNTER 2017-11-25 22:41 | Emergency (ER) | payer SELFPAY ==
[2017-11-25] MEDS ORDERED: PREDNISONE 20 MG TABLET PO ONE (23:41)
[2017-11-25] MEDS ORDERED: IPRATROPIUM/ALBUTEROL 0.5-2.5 MG/3 ML AMPUL NEB ONE (23:41)
[2017-11-26] MEDS ORDERED: ALBUTEROL SULFATE HFA (90 MCG/PUFF) 8 GM MDI (1 MDI/ER DISP) IH PRN (01:18)
--- NOTE | 2017-11-26 01:20 | ER Document Report ---
ED General - General Chief Complaint: Breathing Difficulty Stated Complaint: TROUBLE BREATHING Time Seen by Provider: 11/25/17 23:41 Mode of Arrival: Ambulatory Information source: Patient Notes: 57-year-old female with a history of asthma bronchitis who presents to the emergency room with wheezing. TRAVEL OUTSIDE OF THE [place] IN LAST 30 DAYS: No - HPI Onset: Just prior to arrival Onset/Duration: Gradual Quality of pain: No pain Severity: None Pain Level: Denies Associated symptoms: denies: Chills, Fever Exacerbated by: Movement Relieved by: Remaining still Similar symptoms previously: Yes Recently seen / treated by doctor: No - Related Data Allergies/Adverse Reactions: codeine [Codeine] Allergy (Verified 06/10/17 08:15) rash Past Medical History - General Information source: Patient - Social History Smoking Status: Current Every Day Smoker Cigarette use (# per day): Yes - Half pack per day Chew tobacco use (# tins/day): No Frequency of alcohol use: None Drug Abuse: None Lives with: Family Family History: Hypertension, Other - States she is adopted and does not know her family medical history Patient has suicidal ideation: No Patient has homicidal ideation: No - Past Medical History Cardiac Medical History: Reports: Hx Coronary Artery Disease, Hx Heart Attack - Diagnosed with Takotsubo cardiomyopathy with a normal cardiac cathete, Hx Hypercholesterolemia, Hx Hypertension Pulmonary Medical History: Reports: Hx Bronchitis, Hx COPD Denies: Hx Asthma, Hx Pneumonia, Hx Tuberculosis Neurological Medical History: Denies: Hx Cerebrovascular Accident, Hx Seizures Renal/ Medical History: Denies: Hx Peritoneal Dialysis GI Medical History: Reports: Hx Irritable Bowel. Denies: Hx Hepatitis, Hx Hiatal Hernia, Hx Ulcer Musculoskeltal Medical History: Denies Hx Arthritis Infectious Medical History: Denies: Hx Hepatitis Past Surgical History: Reports: Hx Tubal Ligation. Denies: Hx Hysterectomy, Hx Mastectomy, Hx Open Heart Surgery, Hx Pacemaker - Immunizations Hx Diphtheria, Pertussis, Tetanus Vaccination: Yes - 2006 Review of Systems - Review of Systems Constitutional: denies: Chills, Fever EENT: No symptoms reported Cardiovascular: No symptoms reported Respiratory: See HPI Gastrointestinal: No symptoms reported Genitourinary: No symptoms reported Female Genitourinary: No symptoms reported Musculoskeletal: No symptoms reported Skin: No symptoms reported Hematologic/Lymphatic: No symptoms reported Neurological/Psychological: No symptoms reported Physical Exam - Vital signs Vitals: Temp Pulse Resp BP Pulse Ox 98.8 F 82 20 171/64 H 95 11/25/17 22:46 11/25/17 22:46 11/25/17 22:46 11/25/17 22:46 11/25/17 22:46 Notes: Physical exam: GENERAL: 57-year-old female, alert and oriented 3, no acute distress HEAD: Atraumatic, normocephalic. EYES: Pupils equal round and reactive to light, extraocular movements intact, sclera anicteric, conjunctiva are normal. ENT: TMs normal, nares patent, oropharynx clear without exudates. Moist mucous membranes. NECK: Normal range of motion, supple without obvious mass or JVD. LUNGS: Wheezing bilaterally HEART: Regular rate and rhythm without murmurs, rubs or gallops. ABDOMEN: Soft, normoactive bowel sounds. No tenderness to palpation. No guarding, no rebound. No masses appreciated. EXTREMITIES: Normal range of motion, no pitting or edema. No clubbing or cyanosis. NEUROLOGICAL: Cranial nerves II through XII grossly intact. Normal speech, moving all extremities. PSYCH: Normal mood, normal affect. SKIN: Warm, Dry, normal turgor, no rashes or lesions noted. Course - Vital Signs Vital signs: Temp Pulse Resp BP Pulse Ox 98.9 F 78 18 154/70 H 97 11/26/17 01:30 11/26/17 01:30 11/26/17 01:30 11/26/17 01:30 11/26/17 01:30 - Diagnostic Test Radiology reviewed: Image reviewed, Reports reviewed - Chest x-ray shows no infiltrates Discharge - Discharge Clinical Impression: Asthma exacerbation Condition: Stable Disposition: HOME, SELF-CARE Instructions: Asthma ([facility]), Bronchitis With Bronchospasm (Wheezing) ([facility]) Additional Instructions: Thank you for choosing [facility] for your care. The examination and treatment you have received in the Emergency Department today has been rendered on an emergency basis only and is not intended to be a substitute for complete medical care. You should contact your doctor as it is important that she/he examine you for any new or remaining problems. If given a copy of any lab tests or radiology reports, please bring them with you when you see your physician. If your problem worsens or new symptoms appear and you are unable to arrange prompt follow-up care, return to the Emergency Department. Specific signs to look out for: Worsening shortness of breath Any other instructions: Take the antibiotics as prescribed.Take the steroids as prescribed.Use the inhaler as needed Primary Care Doctor's affiliated with [facility]: If you do not have a primary care doctor or you are unable to get an appointment during that time, you can try one of the doctor's below. These are internal medicine doctor's that have admitting priveledges to the hospital ( they will see you both in the office as well as in this hospital if you are ever hospitalized here). Dr. Carson Streeter [address], [place] [address] [phone] Dr Browning Address: [address] [place] [address] , [place] [address] Dr Peña Address: [address] [place] [address] , [place] [address] If you don't have insurance: follow-up at the [facility] which is a free clinic. [address], [place] [address] [phone] Prescriptions: Doxycycline Hyclate 100 mg PO BID #20 capsule Prednisone [Deltasone 20 mg Tablet] 3 tab PO DAILY 5 Days tablet Forms: Return to Work
[2017-11-26 01:45] VITALS: BP 154/70
== END 2017-11-26 01:30 | disposition home or self-care (01) ==
LOC: ER 22:41
DX: J45.901 Unspecified asthma with (acute) exacerbation (principal); J44.9 Chronic obstructive pulmonary disease, unspecified; F17.210 Nicotine dependence, cigarettes, uncomplicated; I25.10 Atherosclerotic heart disease of native coronary artery without angina pectoris; I10 Essential (primary) hypertension; Z88.5 Allergy status to narcotic agent
CPT/HCPCS: 94640; 99284; J7512; J7620

== ENCOUNTER → 2018-08-02 | Outpatient (CLI) | payer OTHER ==
--- NOTE | 2018-08-02 21:53 | XCELERA REPORT ---
[address] [address] Transthoracic Echocardiogram Report Name: JESUS GIRALDO Age: 57 yrs Gender: Female : 1960 Patient Status: Outpatient Patient Location: RAD Study Date: 08/02/2018 10:22 AM Height: 63 in Weight: 120 lb BSA: 1.6 m2 Reason For Study: CHRONIC TOTAL OCCLUSION OG THE CORONARY ARTERY Ordering Physician: BETY ALMODOVAR Performed By: Aixa Bauer Interpretation Summary Hypokinetic septum and lateral wall. Normal LVEF60%, no LV enlargement. Mild LV diastolic dysfunction. Mild /mod MR, no LA enlargement. No MS and no MVP. AV is normal. TV mild TR with no pulm hypertension. MMode/2D Measurements & Calculations RVDd: 2.2 cm LVIDd: 4.9 cm FS: 32.2 % Ao root diam: 2.6 cm IVSd: 0.77 cm LVIDs: 3.3 cm EDV(Teich): 112.5 ml LVPWd: 0.68 cm ESV(Teich): 44.7 ml Ao root area: 5.2 cm2 LA dimension: 3.1 cm EF(Teich): 60.3 % Doppler Measurements & Calculations MV E max dav: MV P1/2t max dav: Ao V2 max: LV V1 max P.0 cm/sec 114.5 cm/sec 135.7 cm/sec 2.6 mmHg MV A max dav: MV P1/2t: 54.3 msec Ao max PG: LV V1 max: 100.2 cm/sec MVA(P1/2t): 4.0 cm2 7.4 mmHg 80.9 cm/sec MV E/A: 1.1 MV dec slope: 617.3 cm/sec2 MV dec time: 0.19 sec PA V2 max: PI end-d dav: TR max dav: MV P1/2t-pr_phl: 79.0 cm/sec 130.9 cm/sec 213.7 cm/sec 54.3 msec PA max P.5 mmHg TR max P.3 mmHg Left Ventricle The left ventricle is grossly normal size. There is normal left ventricular wall thickness. The left ventricular ejection fraction is normal. The E/E' ratio between the mitral E wave and the mitral annulus E' wave is abnormal, with a value of > 10. There are regional wall motion abnormalities as specified. There is septal wall mild hypokinesis. There is lateral wall mild hypokinesis. There is no thrombus. Right Ventricle The right ventricle is normal in size, thickness and function. Atria The right atrium is normal. The left atrial size is normal. The interatrial septum is intact with no evidence for an atrial septal defect. Mitral Valve The mitral valve is normal in structure and function. There is mild mitral annular calcification. There is no evidence of mitral valve prolapse. There is no mitral valve stenosis. There is a mild amount of mitral regurgitation. Aortic Valve The aortic valve is normal in structure and functions normally. The aortic valve opens well. The aortic valve is trileaflet. There is no aortic valvular vegetation. There is no aortic valve stenosis. There is a trace amount of aortic regurgitation. Tricuspid Valve The tricuspid is normal in structure and function. There is no tricuspid valve prolapse. There is no tricuspid stenosis. There is a mild amount of tricuspid regurgitation. Right ventricular systolic pressure is normal. Pulmonic Valve The pulmonic valve is not well visualized. There is a trace or physiologic amount of pulmonic regurgitation. Great Vessels The aortic root is normal size. Effusions Small pericardial effusion. I WMSI = 1.50 % Normal = 50 Segments Size X - Cannot 2 - 4 - 1-2 small Interpret 1 - Normal Hypokinetic 3 - AkineticDyskinetic 3-5 moderate 5 - 6-14 large Aneurysmal 15-16 diffuse : BETY ALMODOVAR > Antonio Titus
== END ==
LOC: RAD 09:50
DX: I25.10 Atherosclerotic heart disease of native coronary artery without angina pectoris (principal); J44.9 Chronic obstructive pulmonary disease, unspecified
CPT/HCPCS: 93306

== ENCOUNTER → 2018-08-13 | Outpatient (CLI) | payer OTHER ==
[~2018-08-13] MED LIST: ALBUTEROL SULFATE 0.083% NEB 2.5 MG/3 ML AMPUL NEB ONE
--- NOTE | 2018-08-16 11:35 | Pulmonary Function Test ---
Pulmonary Function Test Date of Procedure:: 08/13/18 INDICATION:: COPD Referring Provider: Dr. Thomas Commissions Specialist: Renay Velasquez [employer] - Report Spirometry: FVC 2.27 L 77% postbronchodilator 2.34 L 79% FEV1 1.30 L 54% postbronchodilator 1.39 L 68% FEV1/FVC % 57 postbronchodilator 59 predicted 83 FEF 25-75% 0.55 L 21% postbronchodilator 0.56 L 21% Impression: Moderate obstructive ventilatory defect with insignificant response to bronchodilator therapy. This in and of itself does not preclude clinical trial of bronchodilator therapy.
== END ==
LOC: RT 12:09
DX: J44.9 Chronic obstructive pulmonary disease, unspecified (principal); I10 Essential (primary) hypertension; I25.10 Atherosclerotic heart disease of native coronary artery without angina pectoris
CPT/HCPCS: 94060